=== PATIENT | female | born 1975 | race African-American/Black ===

== ENCOUNTER 2016-11-25 14:27 | Emergency (ER) | payer OTHER ==
[~2016-11-25] VITALS: Ht 160 cm; Wt 103.5 kg
[~2016-11-25 14:27] MED LIST: GAS-80CH CHEW; HYDR25TA5 PO; NAPR220T95 PO; TRIA1SPR6 EACH NARE
[2016-11-25 14:29] VITALS: BP 132/78; PULSE 96; RESP 12; TEMP 98.6; O2SAT 98
[2016-11-25 16:00] VITALS: BP 192/86; PULSE 62; RESP 16; O2SAT 99
[2016-11-25 17:00] VITALS: BP 173/78; PULSE 16; PULSE 62; RESP 16; O2SAT 96
--- NOTE | 2016-11-25 17:28 | RADRPT ---
EXAM DATE/TIME: 11/25/2016 17:05 [facility] COMPARISON: CHEST PA & LAT, October 06, 2016, 16:58. INDICATIONS : Cough MEDICAL HISTORY : None. SURGICAL HISTORY : None. ENCOUNTER: Initial ACUITY: 2 days PAIN SCORE: 0/10 LOCATION: Bilateral chest FINDINGS: Opacity overlying the medial right lung base may be a skin fold. The lungs appear otherwise clear. No evidence of effusion. Heart size and pulmonary vascularity appear normal. CONCLUSION: Probably no acute disease Fredy Cordero MD on November 25, 2016 at 17:25 Board Certified Radiologist. This report was verified electronically.
[2016-11-25 18:00] VITALS: BP 150/70; PULSE 62; RESP 18; O2SAT 97
--- NOTE | 2016-11-25 18:51 | RADRPT ---
EXAM DATE/TIME: 11/25/2016 18:09 [facility] COMPARISON: CHEST PA & LAT, October 06, 2016, 16:58. INDICATIONS : Cough for the past 3 days. MEDICAL HISTORY : Hypertension. Gastroesophageal reflux disease SURGICAL HISTORY : None. ENCOUNTER: Initial ACUITY: 3 days PAIN SCORE: 0/10 LOCATION: Bilateral chest FINDINGS: PA and lateral views of the chest demonstrate the lungs to be symmetrically aerated without evidence of mass, infiltrate or effusion. The cardiomediastinal contours are unremarkable. Osseous structure s are intact. CONCLUSION: No acute disease. There is no evidence of pneumonia. Jaswant Houston MD on November 25, 2016 at 18:48 Board Certified Radiologist. This report was verified electronically.
[2016-11-25] MEDS ORDERED: IPRA0.06 EACH NARE (18:58)
[2016-11-25] MEDS ORDERED: AZIT250T3 PO (18:58)
[2016-11-25] MEDS ORDERED: GUAI100S5 PO (18:59)
--- NOTE | 2016-11-25 18:59 | PD ---
HPI Chief Complaint: Cold / Flu Symptoms Time Seen by Provider: 17:00 Travel History International Travel<30 days: No Contact w/Intl Traveler<30days: No Traveled to known affect area: No History of Present Illness HPI Patient is a 41 -year-old female who presented to the emergency for evaluation of coughing, nasal congestion, throat irritation. Patient states that her symptoms have been ongoing for 3 days. She reports vomiting however it was associated with a coughing spell. She denies any abdominal pain, nausea, fevers , chills, headaches, shortness of breath. PFSH Past Medical History Hx Anticoagulant Therapy: Yes Heart Rhythm Problems: No Cardiac Catheterization: No High Cholesterol: Yes Chemotherapy: No Chest Pain: Yes Congestive Heart Failure: No Cerebrovascular Accident: No Diabetes: No Diminished Hearing: No GERD: Yes Headaches: Yes Hypertension: Yes Respiratory: No Immunizations Current: Yes Migraines: Yes Myocardial Infarction: No Ulcer: Yes ?: Not LMP: 10/25/2016 : 1 Para: 1 Miscarriage: 0 : 0 Past Surgical History Abdominal Surgery: Yes Section: Yes (1992) Coronary Artery Bypass Graft: No Gynecologic Surgery: Yes (C SECTION) Oral Surgery: Yes (WISDOM TEETH) Social History Alcohol Use: No Tobacco Use: No Substance Use: No Allergies-Medications (Allergen,Severity, Reaction): Coded Allergies: Peanut Allergy (Verified Allergy, Severe, 11/25/16) Potassium Chloride (Verified Allergy, Severe, 11/25/16) Tetanus Toxoid (Verified Allergy, Severe, RASH AT SITE, 11/25/16) Reported Meds & Prescriptions Reported Meds & Active Scripts Active Guaifenesin-Codeine Liq 100-10 Mg/5 Ml Soln 10 Ml PO Q6H PRN Ipratropium Nasal 0.06% [place] 1 [place] EACH NARE QID Azithromycin 250 Mg Tab 250 Mg PO DIRECTED Take 2 tabs (500 mg) on day 1 then 1 tab daily x 4 days. Reported Aleve (Naproxen Sodium) 220 Mg Tab 440 Mg PO BID PRN Nasacort Allergy 24Hr Nasal (Triamcinolone Nasal) 55 Mcg/Act Spr 2 [place] EACH NARE DAILY Gas-X (Simethicone) 80 Mg Chew 80 Mg CHEW QID PRN Hydrochlorothiazide 25 Mg Tab 25 Mg PO DAILY Review of Systems Except as stated in HPI: all other systems reviewed are Neg General / Constitutional: No: Fever, Chills HENT: No: Headaches Cardiovascular: No: Chest Pain or Discomfort Respiratory: Positive: Cough, Pleuritic Pain Gastrointestinal: No: Nausea, Vomiting Genitourinary: No: Dysuria Musculoskeletal: No: Myalgias Neurologic: No: Dizziness Physical Exam Narrative GENERAL: Obese, well-developed, alert female. Resting comfortably in no acute distress. SKIN: Warm and dry. HEAD: Atraumatic. Normocephalic. EYES: Pupils equal and round. No scleral icterus. No injection or drainage. ENT: No nasal bleeding or discharge. Mucous membranes pink and moist. Posterior pharynx with cobblestoning appearance. NECK: Trachea midline. No JVD. CARDIOVASCULAR: Regular rate and rhythm. No murmur appreciated. RESPIRATORY: No accessory muscle use. Clear to auscultation. Breath sounds equal bilaterally. GASTROINTESTINAL: Abdomen soft, non-tender, nondistended. Hepatic and splenic margins not palpable. MUSCULOSKELETAL: No obvious deformities. No clubbing. No cyanosis. No edema. NEUROLOGICAL: Awake and alert. No obvious cranial nerve deficits. Motor grossly within normal limits. Normal speech. PSYCHIATRIC: Appropriate mood and affect; insight and judgment normal. Data Data Last Documented VS Vital Signs Date Time Temp Pulse Resp B/P Pulse Ox O2 Delivery O2 Flow Rate FiO2 11/25/16 18:00 62 18 150/70 97 Room Air 11/25/16 14:29 98.6 Orders Chest, Single Ap (11/25/16 ) Influenzae A/B Antigen (11/25/16 17:07) Chest, Pa & Lat (11/25/16 ) MDM Medical Decision Making Medical Screen Exam Complete: Yes Emergency Medical Condition: Yes Interpretation(s) Vital Signs Date Time Temp Pulse Resp B/P Pulse Ox O2 Delivery O2 Flow Rate FiO2 11/25/16 18:00 62 18 150/70 97 Room Air 11/25/16 17:00 62 16 173/78 96 Room Air 11/25/16 16:00 62 16 192/86 99 Room Air 11/25/16 15:57 96 14 98 11/25/16 14:29 98.6 96 12 132/78 98 Room Air Differential Diagnosis Viral URI versus bronchitis versus pneumonia versus other Narrative Course Patient is a 41-year-old female who presents emergency reevaluation of 4 days of cough and cold symptoms. Patient reported to triage that she had vomited 4 times today however she had coughing spells which caused her to gag. Patient's physical examination appears most consistent with a viral syndrome, upper respiratory infection. A PA and lateral chest x-ray was performed which was negative, this was read by my attending physician. Influenza was negative. Patient's vital signs are stable, she is afebrile. She will be given cough medicine as well as a backup antibiotic however she was encouraged to continue with symptomatic management as her symptoms are likely viral in nature. He shouldn't is Norberto follow-up with her primary care provider return to emergency department for any new or worsening symptoms. Patient verbalized understanding of these instructions. Patient is stable for discharge. Diagnosis Primary Impression: Viral upper respiratory tract infection with cough Referrals: Primary Care Physician 2 days Patient Instructions: General Instructions, Upper Respiratory Infection (ED), Viral Syndrome (ED) Departure Forms: Tests/Procedures, Work Release Enter return to work date: Nov 28, 2016 Additional Instructions: Follow-up with her primary doctor Continue with symptomatic management Take medications as directed Return to emergency department for any new or worsening symptoms Med/Other Pt SpecificInfo: Prescription(s) given Scripts Guaifenesin-Codeine Liq 100-10 Mg/5 Ml Soln10 Ml PO Q6H PRN (COUGH) #120 BOTTLE Ref 0 Prov:Socrates Milligan MD 11/25/16 Ipratropium Nasal 0.06% Spray1 [place] EACH NARE QID #1 BOTTLE Ref 0 Prov:Krystle Fernandes 11/25/16 Azithromycin 250 Mg Udt057 Mg PO DIRECTED #6 TAB Ref 0 Take 2 tabs (500 mg) on day 1 then 1 tab daily x 4 days. Prov:Krystle Fernandes 11/25/16 Disposition: 01 DISCHARGE HOME Condition: Stable Krystle Fernandes Nov 25, 2016 18:59
[2016-11-25 19:39] VITALS: BP 145/78
[2016-12-17] MEDS ORDERED: HYDR25TA5 PO (16:01)
[2017-05-13] MEDS ORDERED: HYDR25TA5 PO (14:57)
== END 2016-11-25 19:44 | disposition home or self-care (01) ==
LOC: NEPE 14:27
DX: J06.9 Acute upper respiratory infection, unspecified (principal); E78.00 Pure hypercholesterolemia, unspecified; K21.9 Gastro-esophageal reflux disease without esophagitis; I10 Essential (primary) hypertension; Z79.01 Long term (current) use of anticoagulants
CPT/HCPCS: 71010; 71020; 87804; 99283

== ENCOUNTER 2016-12-05 00:25 | Emergency (ER) | payer OTHER ==
[~2016-12-05] VITALS: Ht 160 cm; Wt 103.0 kg
[~2016-12-05 00:25] MED LIST changes: +AZIT250T3 PO; +GUAI100S5 PO; +IPRA0.06 EACH NARE
[2016-12-05 00:28] VITALS: BP 145/86; PULSE 84; RESP 16; TEMP 98.3; O2SAT 97
[2016-12-05] MEDS ORDERED: CEPH-460 PO (02:20)
[2016-12-05] MEDS ORDERED: BACT800T5 PO (02:20)
--- NOTE | 2016-12-05 02:24 | PD ---
HPI Chief Complaint: Skin Problem Time Seen by Provider: 02:12 Travel History International Travel<30 days: Yes Contact w/Intl Traveler<30days: Yes Name of Country Traveled to: [facility] Traveled to known affect area: No History of Present Illness HPI 41-year-old female presents for evaluation of 2 areas of skin redness, tenderness. She reports that yesterday she felt itchy on both of her legs through her pants. Later on in the day she noticed an area of redness on the medial aspect of the right lower thigh, lateral aspect of the left lower thigh. She's had a little bit of oozing from a central pustular lesion on the left side. Symptoms are mild, aggravated by palpation. No fevers, chills. No other complaints. PFSH Past Medical History Hx Anticoagulant Therapy: Yes Heart Rhythm Problems: No Cardiac Catheterization: No Cardiovascular Problems: Yes (HTN) High Cholesterol: Yes Chemotherapy: No Chest Pain: Yes Congestive Heart Failure: No Cerebrovascular Accident: No Diabetes: No Diminished Hearing: No GERD: Yes Headaches: Yes Hypertension: Yes Respiratory: No Immunizations Current: Yes Migraines: Yes Myocardial Infarction: No Ulcer: Yes ?: Not LMP: 2 DAYS AGO : 1 Para: 1 Miscarriage: 0 : 0 Past Surgical History Abdominal Surgery: Yes Section: Yes (1992) Coronary Artery Bypass Graft: No Gynecologic Surgery: Yes (C SECTION) Oral Surgery: Yes (WISDOM TEETH) Social History Alcohol Use: No Tobacco Use: No Substance Use: No Allergies-Medications (Allergen,Severity, Reaction): Coded Allergies: Peanut Allergy (Verified Allergy, Severe, 11/25/16) Potassium Chloride (Verified Allergy, Severe, 11/25/16) Tetanus Toxoid (Verified Allergy, Severe, RASH AT SITE, 11/25/16) Reported Meds & Prescriptions Reported Meds & Active Scripts Active Keflex (Cephalexin) 500 Mg Cap 500 Mg PO Q6H 7 Days Bactrim DS (Sulfamethoxazole-Trimethoprim) 800-160 Mg Tab 1 Tab PO BID Guaifenesin-Codeine Liq 100-10 Mg/5 Ml Soln 10 Ml PO Q6H PRN Ipratropium Nasal 0.06% [place] 1 [place] EACH NARE QID Azithromycin 250 Mg Tab 250 Mg PO DIRECTED Take 2 tabs (500 mg) on day 1 then 1 tab daily x 4 days. Reported Aleve (Naproxen Sodium) 220 Mg Tab 440 Mg PO BID PRN Nasacort Allergy 24Hr Nasal (Triamcinolone Nasal) 55 Mcg/Act Spr 2 [place] EACH NARE DAILY Gas-X (Simethicone) 80 Mg Chew 80 Mg CHEW QID PRN Hydrochlorothiazide 25 Mg Tab 25 Mg PO DAILY Review of Systems Except as stated in HPI: all other systems reviewed are Neg Physical Exam Narrative GENERAL: Well-developed well-nourished female in no acute distress SKIN: Warm and dry. 3 cm area of mild erythema on the medial right lower thigh. 2-3 cm area of mild erythema on the lateral left lower thigh with central pustular oozing. There is no fluctuance or induration of the skin. CARDIOVASCULAR: Regular rate and rhythm. No murmur appreciated. RESPIRATORY: No accessory muscle use. Clear to auscultation. Breath sounds equal bilaterally. Data Data Last Documented VS Vital Signs Date Time Temp Pulse Resp B/P Pulse Ox O2 Delivery O2 Flow Rate FiO2 12/05/16 00:28 98.3 84 16 145/86 97 Room Air Orders Wound Culture And Gram Stain (12/05/16 02:19) Sulfamet-Trimeth Ds 800-160 Mg (Bactrim (12/05/16 02:30) Cephalexin (Keflex) (12/05/16 02:30) MDM Medical Decision Making Medical Screen Exam Complete: Yes Emergency Medical Condition: Yes Medical Record Reviewed: Yes Differential Diagnosis Cellulitis, erysipelas, necrotizing fasciitis, localized allergic reaction to bug bite, contact dermatitis, pustule, abscess Narrative Course 41-year-old female presents with an area of skin redness on the medial right lower thigh and lateral left lower thigh after retching at her skin yesterday. Examination reveals mild cellulitic changes, some bruising from central pustule lesion on the left side. Wound culture is been obtained. The patient is being discharged with Bactrim and Keflex. Diagnosis Primary Impression: Cellulitis Qualified Code: L03.116 - Cellulitis of left lower extremity Additional Impression: Cellulitis of right lower extremity Additional Instructions: Medication as prescribed. Warm compresses several times a day 10 minutes at a time. Follow-up with primary care physician as needed. Return for new or worsening symptoms. Med/Other Pt SpecificInfo: Prescription(s) given Scripts Cephalexin (Keflex)500 Mg [id number] Mg PO Q6H 7 Days Ref 0 Prov:Hector Arias MD 12/05/16 Sulfamethoxazole-Trimethoprim (Bactrim DS)800-160 Mg Tab1 Tab PO BID #14 TAB Ref 0 Prov:Hector Arias MD 12/05/16 Disposition: 01 DISCHARGE HOME Condition: Stable Jorge Clements Dec 05, 2016 02:24
[2016-12-05] MEDS ORDERED: SULFAMETHOXAZOLE-TRIMETHOPRIM DS 800-160 MG TAB PO ONE (02:30)
[2016-12-05] MEDS ORDERED: CEPHALEXIN MONOHYDRATE 500 MG CAP PO ONE (02:30)
[2016-12-17] MEDS ORDERED: HYDR25TA5 PO (16:01)
[2017-05-13] MEDS ORDERED: HYDR25TA5 PO (14:57)
== END 2016-12-05 02:49 | disposition home or self-care (01) ==
LOC: NEPB 00:25
DX: L03.116 Cellulitis of left lower limb (principal); L03.115 Cellulitis of right lower limb; B95.61 Methicillin susceptible Staphylococcus aureus infection as the cause of diseases classified elsewhere; I10 Essential (primary) hypertension; Z79.01 Long term (current) use of anticoagulants
CPT/HCPCS: 86403; 87070; 87186; 99283

== ENCOUNTER 2016-12-25 23:08 | Emergency (ER) | payer OTHER ==
[~2016-12-25] VITALS: Ht 160 cm; Wt 105.0 kg
[~2016-12-25 23:08] MED LIST changes: +CEPH-460 PO; -IPRA0.06 EACH NARE
[2016-12-25 23:10] VITALS: BP 139/83; PULSE 86; RESP 16; TEMP 98.5; O2SAT 97
[2017-05-13] MEDS ORDERED: HYDR25TA5 PO (14:57)
== END 2016-12-26 01:50 | disposition left against medical advice (07) ==
LOC: NED 23:08
DX: R68.89 Other general symptoms and signs (principal)
CPT/HCPCS: 99281

== ENCOUNTER 2017-01-13 09:28 | Emergency (ER) | payer OTHER ==
[~2017-01-13] VITALS: Ht 160 cm; Wt 104.0 kg
[2017-01-13 09:30] VITALS: BP 136/78; PULSE 80; RESP 14; TEMP 98.2; O2SAT 99
--- NOTE | 2017-01-13 09:42 | PD ---
HPI . weakness, epigastric pain x 2 days Chief Complaint: Headache Time Seen by Provider: 09:41 Travel History International Travel<30 days: No Contact w/Intl Traveler<30days: No Traveled to known affect area: No History of Present Illness HPI 42-year-old female [facility] with past medical history of hypertension and chronic recurrent ear infections here with complaints of weakness and epigastric pain for 2 days. She also reports having a headache that has not responded to tylenol. Patient tells me that she has not been able to eat or drink much for the past 2 days. She tells me she has some epigastric pain that is rated 6/10 without any radiation. When asked about the headache she says, "It ain't that bad right now." I offered toradol and she declined. She denies any nausea, vomiting, diarrhea or constipation. Her most recent bowel movement was this morning. She is urinating as usual. She does admit to having lots of sick contacts at work. She denies any chest pain, or diaphoresis. PFSH Past Medical History Hx Anticoagulant Therapy: Yes Heart Rhythm Problems: No Cardiac Catheterization: No Cardiovascular Problems: Yes High Cholesterol: Yes Chemotherapy: No Chest Pain: Yes Congestive Heart Failure: No Cerebrovascular Accident: No Diabetes: No Diminished Hearing: No GERD: Yes Headaches: Yes Hypertension: Yes Respiratory: No Immunizations Current: Yes Migraines: Yes Myocardial Infarction: No Ulcer: Yes ?: Not : 1 Para: 1 Miscarriage: 0 : 0 Past Surgical History Abdominal Surgery: Yes Section: Yes (X1) Coronary Artery Bypass Graft: No Gynecologic Surgery: Yes (C SECTION) Oral Surgery: Yes (WISDOM TEETH) Social History Alcohol Use: No Tobacco Use: No Substance Use: No Allergies-Medications (Allergen,Severity, Reaction): Coded Allergies: Peanut Allergy (Verified Allergy, Severe, 12/25/16) Potassium Chloride (Verified Allergy, Severe, 12/25/16) Tetanus Toxoid (Verified Allergy, Severe, RASH AT SITE, 12/25/16) Reported Meds & Prescriptions Reported Meds & Active Scripts Active Bactrim DS (Sulfamethoxazole-Trimethoprim) 800-160 Mg Tab 1 Tab PO BID Hydrochlorothiazide 25 Mg Tab 25 Mg PO DAILY Keflex (Cephalexin) 500 Mg Cap 500 Mg PO Q6H 7 Days Guaifenesin-Codeine Liq 100-10 Mg/5 Ml Soln 10 Ml PO Q6H PRN Azithromycin 250 Mg Tab 250 Mg PO DIRECTED Take 2 tabs (500 mg) on day 1 then 1 tab daily x 4 days. Reported Aleve (Naproxen Sodium) 220 Mg Tab 440 Mg PO BID PRN Nasacort Allergy 24Hr Nasal (Triamcinolone Nasal) 55 Mcg/Act Spr 2 [place] EACH NARE DAILY Gas-X (Simethicone) 80 Mg Chew 80 Mg CHEW QID PRN Review of Systems General / Constitutional: No: Fever Eyes: No: Visual changes HENT: Positive: Headaches Cardiovascular: No: Chest Pain or Discomfort Respiratory: No: Shortness of Breath Gastrointestinal: Positive: Abdominal Pain Genitourinary: No: Dysuria Musculoskeletal: No: Pain Skin: No Rash Neurologic: Positive: Weakness Psychiatric: No: Depression Endocrine: No: Polydipsia Hematologic/Lymphatic: No: Easy Bruising Physical Exam Narrative GENERAL: AAO x 3, no acute distress, Well-nourished, well-developed patient. Tearful, but in no distress. SKIN: Warm and dry. No visible rashes or bruising. HEAD: Normocephalic and atraumatic. EYES: No scleral icterus. No injection or drainage. EOM intact, PERRLA ENT: No nasal drainage noted. Mucous membranes pink. Airway patent. No maxillary or frontal sinus tenderness. NECK: Supple, trachea midline. No JVD. CARDIOVASCULAR: Regular rate and rhythm without murmurs, gallops, or rubs. RESPIRATORY: Breath sounds equal bilaterally. No accessory muscle use. No rhonchi or rales. GASTROINTESTINAL: Abdomen soft, non-tender, nondistended. Benign exam. EXTREMITIES: No cyanosis or edema. NEURO: no focal deficits, CN 2-12 intact BACK: Nontender without obvious deformity. No CVA tenderness. PSYCH: AAO x 3, normal affect. Data Data Last Documented VS Vital Signs Date Time Temp Pulse Resp B/P Pulse Ox O2 Delivery O2 Flow Rate FiO2 01/13/17 09:40 Room Air 01/13/17 09:30 98.2 80 14 136/78 99 Orders Complete Blood Count With Diff (01/13/17 09:50) Comprehensive Metabolic Panel (01/13/17 09:50) Urinalysis - C+S If Indicated (01/13/17 09:50) Influenzae A/B Antigen (01/13/17 09:50) Urine Culture (01/13/17 11:00) Labs Laboratory Tests Test 01/13/17 01/13/17 09:50 11:00 White Blood Count 6.1 TH/MM3 Red Blood Count 4.53 MIL/MM3 Hemoglobin 12.0 GM/DL Hematocrit 37.2 % Mean Corpuscular Volume 82.0 FL Mean Corpuscular Hemoglobin 26.4 PG Mean Corpuscular Hemoglobin 32.2 % Concent Red Cell Distribution Width 14.2 % Platelet Count 385 TH/MM3 Mean Platelet Volume 8.4 FL Neutrophils (%) (Auto) 56.2 % Lymphocytes (%) (Auto) 33.9 % Monocytes (%) (Auto) 5.0 % Eosinophils (%) (Auto) 4.2 % Basophils (%) (Auto) 0.7 % Neutrophils # (Auto) 3.4 TH/MM3 Lymphocytes # (Auto) 2.1 TH/MM3 Monocytes # (Auto) 0.3 TH/MM3 Eosinophils # (Auto) 0.3 TH/MM3 Basophils # (Auto) 0.0 TH/MM3 CBC Comment DIFF FINAL Differential Comment Sodium Level 136 MEQ/L Potassium Level 3.6 MEQ/L Chloride Level 101 MEQ/L Carbon Dioxide Level 26.6 MEQ/L Anion Gap 8 MEQ/L Blood Urea Nitrogen 11 MG/DL Creatinine 0.93 MG/DL Estimat Glomerular Filtration 80 ML/MIN Rate Random Glucose 151 MG/DL Calcium Level 8.7 MG/DL Total Bilirubin 0.2 MG/DL Aspartate Amino Transf 13 U/L (AST/SGOT) Alanine Aminotransferase 19 U/L (ALT/SGPT) Alkaline Phosphatase 77 U/L Total Protein 7.7 GM/DL Albumin 3.5 GM/DL Urine Color YELLOW Urine Turbidity HAZY Urine pH 5.0 Urine Specific [place] 1.026 Urine Protein TRACE mg/dL Urine Glucose (UA) NEG mg/dL Urine Ketones NEG mg/dL Urine Occult Blood NEG Urine Nitrite NEG Urine Bilirubin NEG Urine Urobilinogen LESS THAN 2.0 MG/DL Urine Leukocyte Esterase NEG Urine RBC 1 /hpf Urine WBC 7 /hpf Urine Squamous Epithelial 1 /hpf Cells Urine Bacteria MANY /hpf Urine Mucus FEW /lpf Microscopic Urinalysis Comment CULTURE INDICATED MDM Medical Decision Making Medical Screen Exam Complete: Yes Emergency Medical Condition: Yes Medical Record Reviewed: Yes Differential Diagnosis influenza, UTI, sinus headache Narrative Course 42-year-old female [facility] with past medical history of hypertension and chronic recurrent ear infections here with complaints of weakness and epigastric pain for 2 days. She also reports having a headache that has not responded to tylenol. Patient tells me that she has not been able to eat or drink much for the past 2 days. She tells me she has some epigastric pain that is rated 6/10 without any radiation. When asked about the headache she says, "It ain't that bad right now." I offered toradol and she declined. She denies any nausea, vomiting, diarrhea or constipation. Her most recent bowel movement was this morning. She is urinating as usual. She does admit to having lots of sick contacts at work. She denies any chest pain, or diaphoresis. Patient seen and examined. Labs, UA and influenza ordered. CBC is fairly unremarkable. BMP unremarkable except for mild hyperglycemia. Negative influenza. UA is pending. Culture recommended. Will treat with antibiotics as she could possibly have sinusitis with head pressure. Discuss that she will need to get her sugars followed up with Dr. Alfonso. Advise follow-up with community [facility]. Diagnosis Primary Impression: Viral syndrome Additional Impression: UTI (urinary tract infection) Qualified Code: N39.0 - Urinary tract infection without hematuria, site unspecified Patient Instructions: General Instructions Additional Instructions: Please return to emergency department if your symptoms return or worsen. Follow up with your primary care provider in the community clinic. Take medications as prescribed. Med/Other Pt SpecificInfo: Prescription(s) given Scripts Sulfamethoxazole-Trimethoprim (Bactrim DS)800-160 Mg Tab1 Tab PO BID #20 TAB Prov:Genesis Mark 01/13/17 Disposition: DISCHARGE HOME Condition: Stable Genesis Mark Jan 13, 2017 09:42
[2017-01-13 10:26] LABS: AUTOMATED NEUTROPHIL # 3.4 TH/MM3 (1.8-7.7); BASOPHIL % 0.7 % (0.0-2.0); EOSINOPHIL # 0.3 TH/MM3 (0-0.4); EOSINOPHIL % 4.2 % (0.0-4.0); HEMATOCRIT 37.2 % (35.0-46.0); HEMO FLAGS DIFF FINAL; LYMPH % 33.9 % (9.0-44.0); LYMPHOCYTE # 2.1 TH/MM3 (1.0-4.8); MEAN CORPUSCULAR HEMOGLOBIN 26.4 PG (27.0-34.0); MEAN CORPUSCULAR HGB CONC 32.2 % (32.0-36.0); NEUT % 56.2 % (16.0-70.0); PLATELET COUNT 385 TH/MM3 (150-450); RED BLOOD COUNT 4.53 MIL/MM3 (4.00-5.30); RED CELL DISTRIBUTION WIDTH 14.2 % (11.6-17.2); WHITE BLOOD COUNT 6.1 TH/MM3 (4.0-11.0)
[2017-01-13 10:44] LABS: ANION GAP 8 MEQ/L (5-15); AST (GOT) 13 U/L (15-37); BICARBONATE 26.6 MEQ/L (21.0-32.0); BLOOD UREA NITROGEN 11 MG/DL (7-18); CHLORIDE 101 MEQ/L (98-107); GLOMERULAR FILTRATION RATE 80 ML/MIN (>89); POTASSIUM 3.6 MEQ/L (3.5-5.1); SODIUM (NA) 136 MEQ/L (136-145)
[2017-01-13 10:48] LABS: ALKALINE PHOSPHATASE 77 U/L (45-117); ALT (GPT) 19 U/L (10-53); TOTAL BILIRUBIN ADULT 0.2 MG/DL (0.2-1.0)
[2017-01-13 11:39] LABS: BACTERIA, URINE MANY /hpf; BLOOD, URINE NEG (NEG); COMMENT (UR) CULTURE INDICATED; CULTURE IF INDICATED CULTURE INDICATED; GLUCOSE,URINE NEG (NEG); KETONE, URINE NEG (NEG); MUCUS URINE FEW /lpf (OCC); NITRITE,URINE NEG (NEG); SQUAMOUS EPITHELIAL CELL URINE 1 /hpf (0-5); URINE COLOR YELLOW (YELLW/STRAW)
[2017-01-13] MEDS ORDERED: BACT800T5 PO (12:12)
[2017-05-13] MEDS ORDERED: HYDR25TA5 PO (14:57)
== END 2017-01-13 12:36 | disposition home or self-care (01) ==
LOC: NEPC 09:28
DX: B34.9 Viral infection, unspecified (principal); N39.0 Urinary tract infection, site not specified; B96.89 Other specified bacterial agents as the cause of diseases classified elsewhere; I10 Essential (primary) hypertension
CPT/HCPCS: 80053; 81001; 85025; 87086; 87804; 99284

== ENCOUNTER 2017-02-12 10:54 | Emergency (ER) | payer OTHER ==
[~2017-02-12] VITALS: Ht 160 cm; Wt 105.0 kg
[~2017-02-12 10:54] MED LIST changes: -AZIT250T3 PO; +BACT800T5 PO; -CEPH-460 PO; -GUAI100S5 PO; -NAPR220T95 PO
[2017-02-12 10:55] VITALS: BP 131/74; PULSE 74; RESP 16; TEMP 98.1; O2SAT 98
[2017-02-12 11:06] VITALS: BP 122/61; PULSE 69; RESP 16; TEMP 98.7
[2017-02-12 11:07] VITALS: O2SAT 99
[2017-02-12] MEDS ORDERED: SODIUM CHLORIDE 0.9% FLUSH 10 ML FLUSH IVF PRN (11:15)
[2017-02-12] MEDS ORDERED: ASPIRIN 81 MG CHEW TAB PO ONE (11:15)
--- NOTE | 2017-02-12 11:21 | PD ---
HPI . Dizziness and palpitations Chief Complaint: Cardiac Complaint Time Seen by Provider: 11:07 Travel History International Travel<30 days: No Contact w/Intl Traveler<30days: No Traveled to known affect area: No History of Present Illness HPI Patient presents with a 4 day history of dizziness and a one day history of palpitations. She states that her heart has skipped a beat twice today. She also complains with mild shortness of breath. She denies nausea or vomiting. Patient does not really describe vertigo. She denies headache. She denies any exacerbating or relieving factors. She does state that she has had similar symptoms in the past. [id number]: Head QUALITY: Dizzy SEVERITY: Severe DURATION: 4 days TIMING: Comes and goes MODIFYING FACTORS: No noted exacerbating or relieving factors ASSOCIATED SYMPTOMS: Her heart has skipped a beat twice this morning PFSH Past Medical History Hx Anticoagulant Therapy: Yes Heart Rhythm Problems: No Cardiac Catheterization: No Cardiovascular Problems: Yes High Cholesterol: Yes Chemotherapy: No Chest Pain: Yes Congestive Heart Failure: No Cerebrovascular Accident: No Diabetes: No Diminished Hearing: No GERD: Yes Headaches: Yes Heparin Induced Thrombocytopen: No Hypertension: Yes Respiratory: No Immunizations Current: Yes Migraines: Yes Myocardial Infarction: No Ulcer: Yes Tetanus Vaccination: Unknown Influenza Vaccination: No ?: Not LMP: 01/24/17 : 1 Para: 1 Miscarriage: 0 : 0 Past Surgical History Abdominal Surgery: Yes Section: Yes (X1) Coronary Artery Bypass Graft: No Gynecologic Surgery: Yes (C SECTION) Oral Surgery: Yes (WISDOM TEETH) Social History Alcohol Use: No Tobacco Use: No Substance Use: No Allergies-Medications (Allergen,Severity, Reaction): Coded Allergies: Peanut Allergy (Verified Allergy, Severe, 02/12/17) Potassium Chloride (Verified Allergy, Severe, 02/12/17) Tetanus Toxoid (Verified Allergy, Severe, RASH AT SITE, 02/12/17) Reported Meds & Prescriptions Reported Meds & Active Scripts Active Hydrochlorothiazide 25 Mg Tab 25 Mg PO DAILY Reported Nasacort Allergy 24Hr Nasal (Triamcinolone Nasal) 55 Mcg/Act Spr 2 [place] EACH NARE DAILY Gas-X (Simethicone) 80 Mg Chew 80 Mg CHEW QID PRN Review of Systems Except as stated in HPI: all other systems reviewed are Neg General / Constitutional: No: Fever, Chills Eyes: No: Blurred Vision HENT: No: Headaches, Congestion Cardiovascular: Positive: Palpitations, No: Chest Pain or Discomfort Respiratory: Positive: Shortness of Breath Gastrointestinal: No: Nausea, Vomiting, Diarrhea Neurologic: Positive: Dizziness, No: Syncope, Focal Abnormalities, Ataxia, Headache, Change in Mentation, Slurred Speech, Incontinence, Sensory Disturbance Physical Exam Narrative GENERAL: The patient is initially lying on the stretcher looking to the right with her eyes closed. She did open her eyes and turn her head without any apparent distress. SKIN: Warm and dry. HEAD: Atraumatic. Normocephalic. EYES: Pupils equal and round. Extraocular movements are intact. ENT: No nasal bleeding or discharge. Mucous membranes pink and moist. NECK: Trachea midline. Neck is supple. CARDIOVASCULAR: Regular rate and rhythm. Heart sounds are normal. RESPIRATORY: No accessory muscle use. Lungs are clear with full air movement throughout. GASTROINTESTINAL: Abdomen soft, non-tender, nondistended. MUSCULOSKELETAL: No obvious deformities. No edema. NEUROLOGICAL: Awake and alert. No obvious cranial nerve deficits. Motor grossly within normal limits. Normal speech. Normal [id number] exam. PSYCHIATRIC: Appropriate mood and affect; insight and judgment normal. Data Data Last Documented VS Vital Signs Date Time Temp Pulse Resp B/P Pulse Ox O2 Delivery O2 Flow Rate FiO2 02/12/17 11:12 70 Room Air 02/12/17 11:06 98.7 16 122/61 02/12/17 10:55 98 Orders Basic Metabolic Panel (Bmp) (02/12/17 11:09) Ckmb (Isoenzyme) Profile (02/12/17 11:09) Complete Blood Count With Diff (02/12/17 11:09) Magnesium (Mg) (02/12/17 11:09) Troponin I (02/12/17 11:09) Chest, Single Ap (02/12/17 11:09) Ecg Monitoring (02/12/17 11:09) Iv Access Insert/Monitor (02/12/17 11:09) Oximetry (02/12/17 11:09) Aspirin Chew (Aspirin Chew) (02/12/17 11:15) Sodium Chloride 0.9% Flush (Ns Flush) (02/12/17 11:15) Prochlorperazine Inj (Compazine Inj) (02/12/17 11:30) Diphenhydramine Inj (Benadryl Inj) (02/12/17 11:30) CKMB (02/12/17 11:15) CKMB% (02/12/17 11:15) Labs Laboratory Tests Test 02/12/17 11:15 White Blood Count 5.9 TH/MM3 Red Blood Count 4.34 MIL/MM3 Hemoglobin 11.7 GM/DL Hematocrit 35.7 % Mean Corpuscular Volume 82.4 FL Mean Corpuscular Hemoglobin 26.9 PG Mean Corpuscular Hemoglobin 32.6 % Concent Red Cell Distribution Width 14.4 % Platelet Count 347 TH/MM3 Mean Platelet Volume 8.5 FL Neutrophils (%) (Auto) 56.6 % Lymphocytes (%) (Auto) 32.9 % Monocytes (%) (Auto) 6.1 % Eosinophils (%) (Auto) 3.8 % Basophils (%) (Auto) 0.6 % Neutrophils # (Auto) 3.3 TH/MM3 Lymphocytes # (Auto) 1.9 TH/MM3 Monocytes # (Auto) 0.4 TH/MM3 Eosinophils # (Auto) 0.2 TH/MM3 Basophils # (Auto) 0.0 TH/MM3 CBC Comment DIFF FINAL Differential Comment Sodium Level 137 MEQ/L Potassium Level 4.5 MEQ/L Chloride Level 106 MEQ/L Carbon Dioxide Level 26.5 MEQ/L Anion Gap 5 MEQ/L Blood Urea Nitrogen 11 MG/DL Creatinine 0.69 MG/DL Estimat Glomerular Filtration 112 ML/MIN Rate Random Glucose 98 MG/DL Calcium Level 8.9 MG/DL Magnesium Level 2.1 MG/DL Total Creatine Kinase 226 U/L Creatine Kinase MB 1.3 NG/ML Creatine Kinase MB % 0.6 % Troponin I LESS THAN 0.02 NG/ML MDM Medical Decision Making Medical Screen Exam Complete: Yes Emergency Medical Condition: Yes Medical Record Reviewed: Yes (medical records reviewed. She has a history of hypertension, hyperlipidemia and headaches.) Interpretation(s) EKG shows a sinus rhythm with no ST segment elevation or depression. Her EKG is unchanged from previous. Differential Diagnosis Differential diagnosis of dizziness includes but is not limited to vertigo, dehydration, acute blood loss, sepsis, ACS Narrative Course Patient presents complaining with 4 days of dizziness and palpitations today. She has a benign exam. CBC & BMP Diagram 02/12/17 11:15 Her cardiac enzymes are negative. Chest x-ray to my interpretation is negative. No acute etiology for her symptoms has been found. Diagnosis Primary Impression: Dizziness Disposition: 01 DISCHARGE HOME Condition: Stable Laura Jennings MD Feb 12, 2017 11:21
[2017-02-12] MEDS ORDERED: PROCHLORPERAZINE INJ 10 MG/2 ML VIAL IV PUSH ONE (11:30)
[2017-02-12] MEDS: diphenhydrAMINE HCL 50 MG/ML VIAL IV PUSH ONE ×2 (11:30→11:59)
[2017-02-12 11:43] LABS: AUTOMATED NEUTROPHIL # 3.3 TH/MM3 (1.8-7.7); BASOPHIL % 0.6 % (0.0-2.0); EOSINOPHIL # 0.2 TH/MM3 (0-0.4); EOSINOPHIL % 3.8 % (0.0-4.0); HEMATOCRIT 35.7 % (35.0-46.0); HEMO FLAGS DIFF FINAL; LYMPH % 32.9 % (9.0-44.0); LYMPHOCYTE # 1.9 TH/MM3 (1.0-4.8); MEAN CELL VOLUME 82.4 FL (80.0-100.0); MEAN CORPUSCULAR HEMOGLOBIN 26.9 PG (27.0-34.0); MEAN CORPUSCULAR HGB CONC 32.6 % (32.0-36.0); MONO % 6.1 % (0.0-8.0); NEUT % 56.6 % (16.0-70.0); PLATELET COUNT 347 TH/MM3 (150-450); RED BLOOD COUNT 4.34 MIL/MM3 (4.00-5.30); RED CELL DISTRIBUTION WIDTH 14.4 % (11.6-17.2); WHITE BLOOD COUNT 5.9 TH/MM3 (4.0-11.0)
[2017-02-12 12:03] LABS: ANION GAP 5 MEQ/L (5-15); BICARBONATE 26.5 MEQ/L (21.0-32.0); BLOOD UREA NITROGEN 11 MG/DL (7-18); CHLORIDE 106 MEQ/L (98-107); GLOMERULAR FILTRATION RATE 112 ML/MIN (>89); MAGNESIUM 2.1 MG/DL (1.5-2.5); SODIUM (NA) 137 MEQ/L (136-145)
[2017-02-12 12:04] LABS: CREATINE KINASE 226 U/L (26-192); POTASSIUM 4.5 MEQ/L (3.5-5.1)
[2017-02-12 12:17] LABS: CKMB 1.3 NG/ML (0.5-3.6)
--- NOTE | 2017-02-12 13:36 | RADRPT ---
EXAM DATE/TIME: 02/12/2017 11:20 [facility] COMPARISON: CHEST SINGLE AP, November 25, 2016, 17:05. INDICATIONS : Chest pain. MEDICAL HISTORY : Hypertension. Gastroesophageal reflux disease. SURGICAL HISTORY : None. ENCOUNTER: Initial ACUITY: 3 days PAIN SCORE: 2/10 LOCATION: Bilateral chest FINDINGS: A single view of the chest demonstrates the lungs to be symmetrically aerated without evidence of mas s, infiltrate or effusion. The cardiomediastinal contours are unremarkable. Osseous structures are intact. CONCLUSION: 1. No acute cardiopulmonary disease. Stoney Soriano MD on February 12, 2017 at 13:34 Board Certified Radiologist. This report was verified electronically.
--- NOTE | 2017-02-13 13:40 | EKG ---
Date Performed: 02/12/2017 Time Performed: 11:08:03 PTAGE: 42 years EKG: Sinus rhythm NORMAL ECG PREVIOUS TRACING : 11/05/2016 09.41 Compared to prior tracing no significant change DOCTOR: Stoney Tirado Interpretating Date/Time 02/13/2017 13:36:49
[2017-05-13] MEDS ORDERED: HYDR25TA5 PO (14:57)
== END 2017-02-12 13:15 | disposition home or self-care (01) ==
LOC: NEPA 10:54
DX: R42 Dizziness and giddiness (principal); R00.2 Palpitations; R06.02 Shortness of breath; I10 Essential (primary) hypertension; Z79.01 Long term (current) use of anticoagulants
CPT/HCPCS: 71010; 80048; 82550; 82552; 83735; 84484; 85025; 93005; 96374; 99284; J0780; J1200

== ENCOUNTER → 2017-04-09 | Outpatient (CLI) | payer OTHER ==
[~2017-04-09] MED LIST changes: -BACT800T5 PO; -GAS-80CH CHEW
[2017-04-09 09:27] LABS: AUTOMATED NEUTROPHIL # 3.1 TH/MM3 (1.8-7.7); BASOPHIL % 0.9 % (0.0-2.0); EOSINOPHIL # 0.2 TH/MM3 (0-0.4); EOSINOPHIL % 4.3 % (0.0-4.0); HEMATOCRIT 34.2 % (35.0-46.0); HEMO FLAGS DIFF FINAL; LYMPH % 31.9 % (9.0-44.0); LYMPHOCYTE # 1.7 TH/MM3 (1.0-4.8); MEAN CELL VOLUME 80.2 FL (80.0-100.0); MEAN CORPUSCULAR HEMOGLOBIN 27.2 PG (27.0-34.0); MEAN CORPUSCULAR HGB CONC 33.9 % (32.0-36.0); MONO % 4.6 % (0.0-8.0); NEUT % 58.3 % (16.0-70.0); PLATELET COUNT 308 TH/MM3 (150-450); RED BLOOD COUNT 4.27 MIL/MM3 (4.00-5.30); RED CELL DISTRIBUTION WIDTH 14.2 % (11.6-17.2); WHITE BLOOD COUNT 5.3 TH/MM3 (4.0-11.0)
[2017-04-09 11:02] LABS: ALT (GPT) 19 U/L (10-53); ANION GAP 8 MEQ/L (5-15); AST (GOT) 13 U/L (15-37); BICARBONATE 26.5 MEQ/L (21.0-32.0); BLOOD UREA NITROGEN 9 MG/DL (7-18); CHLORIDE 106 MEQ/L (98-107); GLOMERULAR FILTRATION RATE 96 ML/MIN (>89); GLUCOSE,FASTING 116 MG/DL (74-99); POTASSIUM 3.5 MEQ/L (3.5-5.1); SODIUM (NA) 140 MEQ/L (136-145)
[2017-04-09 11:14] LABS: ALKALINE PHOSPHATASE 75 U/L (45-117); HDL CHOLESTEROL 36.5 MG/DL (40.0-60.0); LDL CHOLESTEROL 142 MG/DL (0-99); TOTAL BILIRUBIN ADULT 0.2 MG/DL (0.2-1.0)
== END ==
LOC: CLAB 08:48
PROVIDERS: ATTEND Family Medicine
DX: H61.20 Impacted cerumen, unspecified ear (principal); E78.5 Hyperlipidemia, unspecified; E66.9 Obesity, unspecified; I10 Essential (primary) hypertension; Z91.19 Patient's noncompliance with other medical treatment and regimen
CPT/HCPCS: 36415; 80053; 80061; 84443; 85025

== ENCOUNTER → 2017-04-28 | Outpatient (CLI) | payer OTHER ==
[~2017-04-28] MED LIST changes: +BAYE325T PO
[2017-04-28 10:38] LABS: BICARBONATE 25.8 MEQ/L (21.0-32.0); POTASSIUM 3.5 MEQ/L (3.5-5.1)
== END ==
LOC: CLAB 09:41
PROVIDERS: ATTEND Family Medicine
DX: N83.9 Noninflammatory disorder of ovary, fallopian tube and broad ligament, unspecified (principal)
CPT/HCPCS: 36415; 80048

== ENCOUNTER → 2017-04-29 | Outpatient (CLI) | payer OTHER ==
[~2017-04-29] MED LIST changes: +GADODIAMIDE PF 287 MG/ML 20 ML VIAL (for RAD MRI) IV ONE
--- NOTE | 2017-04-29 10:00 | RADRPT ---
EXAM DATE/TIME: 04/29/2017 08:13 [facility] COMPARISON: CT ABDOMEN & PELVIS W/O CONTRAST, July 18, 2015, 4:23. MRI PELVIS W & W/O CONTRAST, May 16 15, 17:18. INDICATIONS : Mass. Following size and any changes to mass in comparison to prior MRI in 2014. CONTRAST: 20 cc Omniscan (gadodiamide) IV MEDICAL HISTORY : Hypertension. SURGICAL HISTORY : section. ENCOUNTER: Sequela ACUITY: > 1 year PAIN SCORE: 3/10 LOCATION: Lower abdomen. TECHNIQUE: Multiplanar, multisequence magnetic resonance imaging of the pelvis was performed. FINDINGS: Again, there is a fat-containing mass within the right hemipelvis/adnexa which measures 7.1 x 6.4 x 7 .7 cm. This also contains calcification and fluid. This likely represents dermoid/teratoma. The ut erus is stable in appearance compared to the previous examination. No pelvis lymphadenopathy is note d. The urinary bladder is unremarkable. No pelvic ascites is noted. The bowel loops within the pel vis are unremarkable. CONCLUSION: 1. Stable complex right adnexal mass measuring 7.1 x 6.4 x 7.7 cm consistent with dermoid/teratoma. 2. No new findings identified within the pelvis. Carlos Singh MD on April 29, 2017 at 9:23 Board Certified Radiologist. This report was verified electronically.
== END ==
LOC: HRAD 07:19
PROVIDERS: ATTEND Family Medicine
DX: R19.09 Other intra-abdominal and pelvic swelling, mass and lump (principal)
CPT/HCPCS: 72197; A9579

== ENCOUNTER 2017-05-16 00:22 | Emergency (ER) | payer OTHER ==
[~2017-05-16] VITALS: Ht 160 cm; Wt 105.0 kg
[~2017-05-16 00:22] MED LIST changes: -BAYE325T PO; -GADODIAMIDE PF 287 MG/ML 20 ML VIAL (for RAD MRI) IV ONE
[2017-05-16 00:25] VITALS: BP 165/76; PULSE 73; RESP 20; TEMP 97.8; O2SAT 100
[2017-05-16] MEDS ORDERED: SODIUM CHLORIDE 0.9% FLUSH 10 ML FLUSH IVF PRN (01:00)
[2017-05-16 01:10] LABS: AUTOMATED NEUTROPHIL # 4.3 TH/MM3 (1.8-7.7); BASOPHIL % 0.5 % (0.0-2.0); EOSINOPHIL # 0.3 TH/MM3 (0-0.4); EOSINOPHIL % 3.6 % (0.0-4.0); HEMATOCRIT 35.4 % (35.0-46.0); HEMO FLAGS DIFF FINAL; LYMPH % 37.6 % (9.0-44.0); MEAN CELL VOLUME 80.6 FL (80.0-100.0); MEAN CORPUSCULAR HEMOGLOBIN 26.4 PG (27.0-34.0); MEAN CORPUSCULAR HGB CONC 32.7 % (32.0-36.0); MONO % 4.9 % (0.0-8.0); NEUT % 53.4 % (16.0-70.0); PLATELET COUNT 347 TH/MM3 (150-450); RED BLOOD COUNT 4.39 MIL/MM3 (4.00-5.30); RED CELL DISTRIBUTION WIDTH 13.8 % (11.6-17.2); WHITE BLOOD COUNT 8.1 TH/MM3 (4.0-11.0)
[2017-05-16 01:46] LABS: BICARBONATE 27.2 MEQ/L (21.0-32.0); POTASSIUM 3.7 MEQ/L (3.5-5.1)
--- NOTE | 2017-05-16 02:45 | RADRPT ---
EXAM DATE/TIME: 05/16/2017 02:10 [facility] COMPARISON: CHEST SINGLE AP, February 12, 2017, 11:20. INDICATIONS : Shortness of breath for a few hours, and feet swelling. MEDICAL HISTORY : Hypertension. Gastroesophageal reflux disease. SURGICAL HISTORY : None. ENCOUNTER: Initial ACUITY: 1 day PAIN SCORE: 0/10 LOCATION: Bilateral chest FINDINGS: The lungs are clear without infiltrate, nodule, or mass. There is no appreciable pleural effusion fo r technique. Heart and mediastinum are unremarkable. CONCLUSION: No acute cardiopulmonary disease. Stacy Ramirez MD on May 16, 2017 at 2:44 Board Certified Radiologist. This report was verified electronically.
[2017-05-16 03:30] VITALS: BP 154/86; PULSE 72; RESP 14; O2SAT 100
--- NOTE | 2017-05-16 03:36 | PD ---
HPI Chief Complaint: Edema Time Seen by Provider: 00:44 Travel History International Travel<30 days: No Contact w/Intl Traveler<30days: No Traveled to known affect area: No History of Present Illness HPI Patient is a 42 year old female who presents to ER with c/o of SOB and leg swelling. Reports that she ran out of her hctz and has not taken it for past few days, she did get refill today but did not take it today because it makes her go to the bathroom too much. Patient is here for evaluation and wants to make sure she is okay. Patient with no cp. no f/v. no other c/o. PFSH Past Medical History Hx Anticoagulant Therapy: Yes Heart Rhythm Problems: No Cardiac Catheterization: No Cardiovascular Problems: Yes High Cholesterol: Yes Chemotherapy: No Chest Pain: Yes Congestive Heart Failure: No Cerebrovascular Accident: No Diabetes: No Diminished Hearing: No GERD: Yes Headaches: Yes Heparin Induced Thrombocytopen: No Hypertension: Yes Respiratory: No Immunizations Current: Yes Migraines: Yes Myocardial Infarction: No Ulcer: Yes ?: Not LMP: 04/15/17 : 1 Para: 1 Miscarriage: 0 : 0 Past Surgical History Abdominal Surgery: Yes Section: Yes (X1) Coronary Artery Bypass Graft: No Gynecologic Surgery: Yes (C SECTION) Oral Surgery: Yes (WISDOM TEETH) Social History Alcohol Use: Yes (rare) Tobacco Use: No Substance Use: No Allergies-Medications (Allergen,Severity, Reaction): Coded Allergies: Peanut Allergy (Verified Allergy, Severe, 05/16/17) Potassium Chloride (Verified Allergy, Severe, 05/16/17) Tetanus Toxoid (Verified Allergy, Severe, RASH AT SITE, 05/16/17) Reported Meds & Prescriptions Reported Meds & Active Scripts Active Hydrochlorothiazide 25 Mg Tab 25 Mg PO DAILY Reported Nasacort Allergy 24Hr Nasal (Triamcinolone Nasal) 55 Mcg/Act Spr 2 [place] EACH NARE DAILY Review of Systems General / Constitutional: No: Fever Eyes: No: Visual changes HENT: No: Headaches Cardiovascular: No: Chest Pain or Discomfort, Palpitations, Irregular Rhythm, Tachycardia, Diaphoresis Respiratory: Positive: Shortness of Breath Gastrointestinal: No: Nausea, Vomiting, Abdominal Pain Genitourinary: No: Dysuria Musculoskeletal: Positive: Edema (swelling to LE's b/l ), No: Pain Skin: No Rash Neurologic: No: Weakness Psychiatric: No: Depression Endocrine: No: Polydipsia Hematologic/Lymphatic: No: Easy Bruising Physical Exam Narrative GENERAL: NAD, Nontoxic SKIN: Focused skin assessment warm/dry. HEAD: Atraumatic. Normocephalic. EYES: Pupils equal and round. No scleral icterus. No injection or drainage. ENT: No nasal bleeding or discharge. Mucous membranes pink and moist. NECK: Trachea midline. No JVD. CARDIOVASCULAR: Regular rate and rhythm. No murmur appreciated. RESPIRATORY: No accessory muscle use. Clear to auscultation. Breath sounds equal bilaterally. GASTROINTESTINAL: Abdomen soft, non-tender, nondistended. Hepatic and splenic margins not palpable. MUSCULOSKELETAL: No obvious deformities. No clubbing. No cyanosis. Mild edema to LE's b/l. NEUROLOGICAL: Awake and alert. No obvious cranial nerve deficits. Motor grossly within normal limits. Normal speech. PSYCHIATRIC: Appropriate mood and affect; insight and judgment normal. Data Data Last Documented VS Vital Signs Date Time Temp Pulse Resp B/P Pulse Ox O2 Delivery O2 Flow Rate FiO2 05/16/17 00:37 Room Air 05/16/17 00:25 97.8 73 20 165/76 100 Orders Complete Blood Count With Diff (05/16/17 00:55) Basic Metabolic Panel (Bmp) (05/16/17 00:55) B-Type Natriuretic Peptide (05/16/17 00:55) Urinalysis - C+S If Indicated (05/16/17 00:55) Iv Access Insert/Monitor (05/16/17 00:55) Electrocardiogram (05/16/17 00:55) Ecg Monitoring (05/16/17 00:55) Oximetry (05/16/17 00:55) Sodium Chloride 0.9% Flush (Ns Flush) (05/16/17 01:00) Us Leg Venous Doppler Bilat (05/16/17 ) Chest, Single Ap (05/16/17 01:47) Labs Laboratory Tests Test 05/16/17 01:03 White Blood Count 8.1 TH/MM3 Red Blood Count 4.39 MIL/MM3 Hemoglobin 11.6 GM/DL Hematocrit 35.4 % Mean Corpuscular Volume 80.6 FL Mean Corpuscular Hemoglobin 26.4 PG Mean Corpuscular Hemoglobin 32.7 % Concent Red Cell Distribution Width 13.8 % Platelet Count 347 TH/MM3 Mean Platelet Volume 8.6 FL Neutrophils (%) (Auto) 53.4 % Lymphocytes (%) (Auto) 37.6 % Monocytes (%) (Auto) 4.9 % Eosinophils (%) (Auto) 3.6 % Basophils (%) (Auto) 0.5 % Neutrophils # (Auto) 4.3 TH/MM3 Lymphocytes # (Auto) 3.0 TH/MM3 Monocytes # (Auto) 0.4 TH/MM3 Eosinophils # (Auto) 0.3 TH/MM3 Basophils # (Auto) 0.0 TH/MM3 CBC Comment DIFF FINAL Differential Comment Sodium Level 141 MEQ/L Potassium Level 3.7 MEQ/L Chloride Level 107 MEQ/L Carbon Dioxide Level 27.2 MEQ/L Anion Gap 7 MEQ/L Blood Urea Nitrogen 10 MG/DL Creatinine 0.73 MG/DL Estimat Glomerular Filtration 105 ML/MIN Rate Random Glucose 98 MG/DL Calcium Level 8.8 MG/DL B-Type Natriuretic Peptide 47 PG/ML MDM Medical Decision Making Medical Screen Exam Complete: Yes Emergency Medical Condition: Yes Interpretation(s) Vital Signs Date Time Temp Pulse Resp B/P Pulse Ox O2 Delivery O2 Flow Rate FiO2 05/16/17 00:37 Room Air 05/16/17 00:25 97.8 73 20 165/76 100 Laboratory Tests Test 05/16/17 01:03 White Blood Count 8.1 TH/MM3 (4.0-11.0) Red Blood Count 4.39 MIL/MM3 (4.00-5.30) Hemoglobin 11.6 GM/DL (11.6-15.3) Hematocrit 35.4 % (35.0-46.0) Mean Corpuscular Volume 80.6 FL (80.0-100.0) Mean Corpuscular Hemoglobin 26.4 PG (27.0-34.0) Mean Corpuscular Hemoglobin 32.7 % Concent (32.0-36.0) Red Cell Distribution Width 13.8 % (11.6-17.2) Platelet Count 347 TH/MM3 (150-450) Mean Platelet Volume 8.6 FL (7.0-11.0) Neutrophils (%) (Auto) 53.4 % (16.0-70.0) Lymphocytes (%) (Auto) 37.6 % (9.0-44.0) Monocytes (%) (Auto) 4.9 % (0.0-8.0) Eosinophils (%) (Auto) 3.6 % (0.0-4.0) Basophils (%) (Auto) 0.5 % (0.0-2.0) Neutrophils # (Auto) 4.3 TH/MM3 (1.8-7.7) Lymphocytes # (Auto) 3.0 TH/MM3 (1.0-4.8) Monocytes # (Auto) 0.4 TH/MM3 (0-0.9) Eosinophils # (Auto) 0.3 TH/MM3 (0-0.4) Basophils # (Auto) 0.0 TH/MM3 (0-0.2) CBC Comment DIFF FINAL Differential Comment Sodium Level 141 MEQ/L (136-145) Potassium Level 3.7 MEQ/L (3.5-5.1) Chloride Level 107 MEQ/L (98-107) Carbon Dioxide Level 27.2 MEQ/L (21.0-32.0) Anion Gap 7 MEQ/L (5-15) Blood Urea Nitrogen 10 MG/DL (7-18) Creatinine 0.73 MG/DL (0.50-1.00) Estimat Glomerular Filtration 105 ML/MIN Rate (>89) Random Glucose 98 MG/DL (74-106) Calcium Level 8.8 MG/DL (8.5-10.1) B-Type Natriuretic Peptide 47 PG/ML (0-100) Differential Diagnosis dvt, pe, pneumothorax, CHF Narrative Course 42-year-old female who presents to emergency room complaints of shortness of breath as well as bilateral leg swelling. Lab work including ultrasound of legs and x-ray chest ordered. Laboratory Tests Test 05/16/17 01:03 White Blood Count 8.1 TH/MM3 (4.0-11.0) Red Blood Count 4.39 MIL/MM3 (4.00-5.30) Hemoglobin 11.6 GM/DL (11.6-15.3) Hematocrit 35.4 % (35.0-46.0) Mean Corpuscular Volume 80.6 FL (80.0-100.0) Mean Corpuscular Hemoglobin 26.4 PG (27.0-34.0) Mean Corpuscular Hemoglobin 32.7 % Concent (32.0-36.0) Red Cell Distribution Width 13.8 % (11.6-17.2) Platelet Count 347 TH/MM3 (150-450) Mean Platelet Volume 8.6 FL (7.0-11.0) Neutrophils (%) (Auto) 53.4 % (16.0-70.0) Lymphocytes (%) (Auto) 37.6 % (9.0-44.0) Monocytes (%) (Auto) 4.9 % (0.0-8.0) Eosinophils (%) (Auto) 3.6 % (0.0-4.0) Basophils (%) (Auto) 0.5 % (0.0-2.0) Neutrophils # (Auto) 4.3 TH/MM3 (1.8-7.7) Lymphocytes # (Auto) 3.0 TH/MM3 (1.0-4.8) Monocytes # (Auto) 0.4 TH/MM3 (0-0.9) Eosinophils # (Auto) 0.3 TH/MM3 (0-0.4) Basophils # (Auto) 0.0 TH/MM3 (0-0.2) CBC Comment DIFF FINAL Differential Comment Sodium Level 141 MEQ/L (136-145) Potassium Level 3.7 MEQ/L (3.5-5.1) Chloride Level 107 MEQ/L (98-107) Carbon Dioxide Level 27.2 MEQ/L (21.0-32.0) Anion Gap 7 MEQ/L (5-15) Blood Urea Nitrogen 10 MG/DL (7-18) Creatinine 0.73 MG/DL (0.50-1.00) Estimat Glomerular Filtration 105 ML/MIN Rate (>89) Random Glucose 98 MG/DL (74-106) Calcium Level 8.8 MG/DL (8.5-10.1) B-Type Natriuretic Peptide 47 PG/ML (0-100) CBC: Within normal limits BMP: Within normal limits BNP: 47 chest xray: no acute cardiopulmonary disease venous doppler LE: No DVT All labs and studies reviewed with patient in detail. Patient will follow up with her pcp and will return to ER as needed. Patient reports that she is feeling much better at this time Diagnosis Primary Impression: Localized swelling of both lower legs Additional Impression: SOB (shortness of breath) Patient Instructions: General Instructions Additional Instructions: Please follow up with your primary care doctor Take all medications as prescribed Return to ER as needed Have you ultrasound repeated in 1 week if swelling persist Disposition: 01 DISCHARGE HOME Condition: Stable Stacey Dougherty DO May 16, 2017 03:36
[2017-05-16 04:30] VITALS: BP 144/78; PULSE 68; RESP 14; O2SAT 100
[2017-05-16 05:21] VITALS: BP 148/80; PULSE 70; RESP 14; O2SAT 100
--- NOTE | 2017-05-16 11:06 | RADRPT ---
EXAM DATE/TIME: 05/16/2017 01:25 [facility] COMPARISON: No previous studies available for comparison. INDICATIONS : Bilateral leg swelling. MEDICAL HISTORY : Gastroesophageal reflux disease. Hypertension. Hypercholesterolemia. Migraine. Chest pain. Ulcer. SURGICAL HISTORY : section. Abdominal surgery, unspecified. ENCOUNTER: Initial ACUITY: 1 week PAIN SCORE: 5/10 LOCATION: Bilateral legs. TECHNIQUE: Venous ultrasound of the left and right leg was performed from the inguinal ligament to the proximal calf. Real-time, color Doppler and spectral tracing, compression and augmentation techniques were us ed. FINDINGS: RIGHT LEG: There is normal compressibility of the deep venous system from the inguinal region to the proximal ca lf. No echogenic clot is seen in the lumen of the common femoral, femoral, popliteal, and posterior tibial veins. There is a normal response of the venous system to proximal and distal augmentation an d respiration. LEFT LEG: There is normal compressibility of the deep venous system from the inguinal region to the proximal ca lf. No echogenic clot is seen in the lumen of the common femoral, femoral, popliteal, and posterior tibial veins. There is a normal response of the venous system to proximal and distal augmentation an d respiration. CONCLUSION: No DVT. Stacy Ramirez MD on May 16, 2017 at 2:43 Board Certified Radiologist. This report was verified electronically.
[2017-05-22] MEDS ORDERED: BAYE325T PO (08:58)
== END 2017-05-16 05:49 | disposition home or self-care (01) ==
LOC: NEPE 00:22
DX: M79.89 Other specified soft tissue disorders (principal); R06.02 Shortness of breath; E78.00 Pure hypercholesterolemia, unspecified; K21.9 Gastro-esophageal reflux disease without esophagitis; I10 Essential (primary) hypertension; Z79.899 Other long term (current) drug therapy
CPT/HCPCS: 71010; 80048; 83880; 85025; 93970

== ENCOUNTER → 2017-05-22 | Outpatient (CLI) | payer OTHER ==
[~2017-05-22] MED LIST changes: +BAYE325T PO
[2017-05-22 10:33] LABS: ANION GAP 6 MEQ/L (5-15); BICARBONATE 28.4 MEQ/L (21.0-32.0); BLOOD UREA NITROGEN 11 MG/DL (7-18); CHLORIDE 103 MEQ/L (98-107); GLOMERULAR FILTRATION RATE 101 ML/MIN (>89); POTASSIUM 3.7 MEQ/L (3.5-5.1); SODIUM (NA) 137 MEQ/L (136-145)
[2017-05-22 11:13] LABS: HEMOGLOBIN A1a 1.2 %; HEMOGLOBIN Ao 83.8 %; HEMOGLOBIN F 1.6 %; HEMOGLOBIN LA1C 2.1 %; HEMOGLOBIN P3 3.7 %
== END ==
LOC: CLAB 09:40
PROVIDERS: ATTEND Family Medicine
DX: R73.02 Impaired glucose tolerance (oral) (principal); N83.9 Noninflammatory disorder of ovary, fallopian tube and broad ligament, unspecified
CPT/HCPCS: 36415; 80048; 83036

== ENCOUNTER 2017-05-30 14:40 | Emergency (ER) | payer OTHER ==
[~2017-05-30] VITALS: Ht 160 cm; Wt 105.9 kg
[2017-05-30 14:42] VITALS: BP 139/59; PULSE 91; RESP 17; TEMP 97.8; O2SAT 96
[2017-05-30] MEDS ORDERED: SODIUM CHLORIDE 0.9% FLUSH 10 ML FLUSH IVF PRN (16:30)
[2017-05-30] MEDS ORDERED: ASPIRIN 325 MG TAB PO ONE (16:30)
--- NOTE | 2017-05-30 16:58 | PD ---
HPI Chief Complaint: Chest Pain Time Seen by Provider: 16:55 Travel History International Travel<30 days: No Contact w/Intl Traveler<30days: No Traveled to known affect area: No History of Present Illness HPI 42-year-old female that presents to the ED for evaluation of left-sided chest pain. Per patient she had this for about an hour before coming to the ED. Per patient is not constant but comes and goes. Per patient she is pain-free at this time. She does have a history of lower leg edema and used to take hydrochlorothiazide for it. Unclear she's taken it. She does have a history of hypertension and states that she is borderline diabetic. Denies any history of heart disease on herself. Allergies to peanuts, potassium chloride and tetanus. States that the pain was sharp 5 out of 10. Nothing made it better or worse. She has no shortness of breath. No nausea or vomiting. No cough or runny nose. No injuries reported. No recent travel. PFSH Past Medical History Hx Anticoagulant Therapy: Yes Heart Rhythm Problems: No Cardiac Catheterization: No Cardiovascular Problems: Yes High Cholesterol: Yes Chemotherapy: No Chest Pain: Yes Congestive Heart Failure: No Cerebrovascular Accident: No Diabetes: Yes (PRE-DIABETIC) Patient Takes Glucophage: No Diminished Hearing: No GERD: Yes Headaches: Yes Heparin Induced Thrombocytopen: No Hypertension: Yes Respiratory: No Immunizations Current: Yes Migraines: Yes Myocardial Infarction: No Ulcer: Yes ?: Not LMP: 05/30/17 : 1 Para: 1 Miscarriage: 0 : 0 Past Surgical History Abdominal Surgery: Yes Section: Yes (X1) Coronary Artery Bypass Graft: No Gynecologic Surgery: Yes (C SECTION) Oral Surgery: Yes (WISDOM TEETH) Social History Alcohol Use: Yes (rare) Tobacco Use: No Substance Use: No Allergies-Medications (Allergen,Severity, Reaction): Coded Allergies: Peanut Allergy (Verified Allergy, Severe, 05/30/17) Potassium Chloride (Verified Allergy, Severe, 05/30/17) Tetanus Toxoid (Verified Allergy, Severe, RASH AT SITE, 05/30/17) Reported Meds & Prescriptions Reported Meds & Active Scripts Active Hydrochlorothiazide 25 Mg Tab 25 Mg PO DAILY Reported Raghu Aspirin (Aspirin) 325 Mg Tab 325 Mg PO DAILY PRN Nasacort Allergy 24Hr Nasal (Triamcinolone Nasal) 55 Mcg/Act Spr 2 [place] EACH NARE DAILY Review of Systems Except as stated in HPI: all other systems reviewed are Neg Physical Exam Narrative GENERAL: SKIN: Warm and dry. HEAD: Atraumatic. Normocephalic. EYES: Pupils equal and round. No scleral icterus. No injection or drainage. ENT: No nasal bleeding or discharge. Mucous membranes pink and moist. Tongue is midline. No uvula deviation. NECK: Trachea midline. No JVD. CARDIOVASCULAR: Regular rate and rhythm. No murmurs, S3, S4. Chest pain is not reproducible with touch. RESPIRATORY: No accessory muscle use. Clear to auscultation. Breath sounds equal bilaterally. GASTROINTESTINAL: Abdomen soft, non-tender, nondistended. Hepatic and splenic margins not palpable. MUSCULOSKELETAL: Extremities without clubbing, cyanosis, or edema. No obvious deformities. Full range of motion of the upper and lower extremities bilaterally. 2+ pulses bilaterally. NEUROLOGICAL: Awake and alert. No obvious cranial nerve deficits. Motor grossly within normal limits. Five out of 5 muscle strength in the arms and legs. Normal speech. PSYCHIATRIC: Appropriate mood and affect; insight and judgment normal. Data Data Last Documented VS Vital Signs Date Time Temp Pulse Resp B/P Pulse Ox O2 Delivery O2 Flow Rate FiO2 05/30/17 16:24 85 18 99 Room Air 05/30/17 14:42 97.8 139/59 Orders Electrocardiogram (05/30/17 ) Electrocardiogram (05/30/17 16:18) Basic Metabolic Panel (Bmp) (05/30/17 16:18) Ckmb (Isoenzyme) Profile (05/30/17 16:18) Complete Blood Count With Diff (05/30/17 16:18) Magnesium (Mg) (05/30/17 16:18) Troponin I (05/30/17 16:18) Chest, Single Ap (05/30/17 16:18) Ecg Monitoring (05/30/17 16:18) Bilateral Bp Monitoring (05/30/17 16:18) Iv Access Insert/Monitor (05/30/17 16:18) Aspirin (Aspirin) (05/30/17 16:30) Sodium Chloride 0.9% Flush (Ns Flush) (05/30/17 16:30) CKMB (05/30/17 16:43) CKMB% (05/30/17 16:43) Troponin I (05/30/17 18:43) Labs Laboratory Tests Test 05/30/17 05/30/17 16:43 18:43 White Blood Count 6.3 TH/MM3 Red Blood Count 4.48 MIL/MM3 Hemoglobin 12.0 GM/DL Hematocrit 36.9 % Mean Corpuscular Volume 82.4 FL Mean Corpuscular Hemoglobin 26.8 PG Mean Corpuscular Hemoglobin 32.5 % Concent Red Cell Distribution Width 14.3 % Platelet Count 361 TH/MM3 Mean Platelet Volume 8.1 FL Neutrophils (%) (Auto) 58.0 % Lymphocytes (%) (Auto) 31.2 % Monocytes (%) (Auto) 6.0 % Eosinophils (%) (Auto) 4.3 % Basophils (%) (Auto) 0.5 % Neutrophils # (Auto) 3.7 TH/MM3 Lymphocytes # (Auto) 2.0 TH/MM3 Monocytes # (Auto) 0.4 TH/MM3 Eosinophils # (Auto) 0.3 TH/MM3 Basophils # (Auto) 0.0 TH/MM3 CBC Comment DIFF FINAL Differential Comment Sodium Level 141 MEQ/L Potassium Level 3.5 MEQ/L Chloride Level 105 MEQ/L Carbon Dioxide Level 28.0 MEQ/L Anion Gap 8 MEQ/L Blood Urea Nitrogen 13 MG/DL Creatinine 0.85 MG/DL Estimat Glomerular Filtration 88 ML/MIN Rate Random Glucose 103 MG/DL Calcium Level 9.2 MG/DL Magnesium Level 2.1 MG/DL Total Creatine Kinase 226 U/L Creatine Kinase MB 0.9 NG/ML Creatine Kinase MB % 0.4 % Troponin I LESS THAN 0.02 LESS THAN 0.02 NG/ML NG/ML MDM Medical Decision Making Medical Screen Exam Complete: Yes Emergency Medical Condition: Yes Medical Record Reviewed: Yes Interpretation(s) CBC & BMP Diagram 05/30/17 16:43 Last Impressions Chest X-Ray 05/30/17 1618 Signed Impressions: Service Date/Time: Tuesday, May 30, 2017 16:34 - CONCLUSION: No acute cardiopulmonary disease. Stacy Ramirez MD EKG shows sinus rhythm with no sign of acute ischemia or arrhythmia read by me and attending. Troponin and CK-MB negative. Differential Diagnosis Chest pain versus atypical chest pain versus normal exam versus costochondritis Narrative Course 42-year-old female that presents to the ED for evaluation of chest pain. Patient was properly examined and was found to have signs and symptoms of unclear etiology. Low suspicion for ACS but unfortunate patient does have risk factors including hypertension and what appears to be high cholesterol. Will do blood work and EKG as well as chest x-ray. Labs and imaging showed no sign of acute disease. Patient was offered admission and she does have risk factors the chest pain center for further evaluation. She declined at this time. Second troponin was ordered and was negative. Patient still declines admission for further workup. Patient was told to wear proper testing she could develop severe illness. Case was discussed in my attending Dr. Ayala who recommends AMA patient does not want to stay for further evaluation. AMA: The risks of leaving against medical advice without further evaluation treatment were discussed with the patient. These risks include cardiac dysfunction, cardiac dysrhythmia, possible heart attack, possible stroke or . The patient indicated understanding of these risks and appeared to have the capacity to make this decision. Diagnosis Primary Impression: Chest pain in adult Patient Instructions: General Instructions Additional Instructions: Follow up with your doctor this week. See ED if worst. Take aspirin PRN. Med/Other Pt SpecificInfo: No Change to Meds Disposition: 07 AGAINST MEDICAL ADVICE Condition: Stable Adalberto Grayson May 30, 2017 16:58
--- NOTE | 2017-05-30 16:59 | RADRPT ---
EXAM DATE/TIME: 05/30/2017 16:34 [facility] COMPARISON: No previous studies available for comparison. INDICATIONS : Left side chest pain. MEDICAL HISTORY : Gastroesophageal reflux disease. Hypertension. Hypercholesterolemia. Migraine.Chest pain. Ulcer. SURGICAL HISTORY : section. Abdominal surgery, unspecified. ENCOUNTER: Initial ACUITY: 1 day PAIN SCORE: 8/10 LOCATION: Bilateral chest FINDINGS: The lungs are clear without infiltrate, nodule, or mass. There is no appreciable pleural effusion fo r technique. Heart and mediastinum are unremarkable. CONCLUSION: No acute cardiopulmonary disease. Stacy Ramirez MD on May 30, 2017 at 16:57 Board Certified Radiologist. This report was verified electronically.
[2017-05-30 17:03] LABS: AUTOMATED NEUTROPHIL # 3.7 TH/MM3 (1.8-7.7); BASOPHIL % 0.5 % (0.0-2.0); EOSINOPHIL # 0.3 TH/MM3 (0-0.4); EOSINOPHIL % 4.3 % (0.0-4.0); HEMATOCRIT 36.9 % (35.0-46.0); HEMO FLAGS DIFF FINAL; LYMPH % 31.2 % (9.0-44.0); MEAN CELL VOLUME 82.4 FL (80.0-100.0); MEAN CORPUSCULAR HEMOGLOBIN 26.8 PG (27.0-34.0); MEAN CORPUSCULAR HGB CONC 32.5 % (32.0-36.0); PLATELET COUNT 361 TH/MM3 (150-450); RED BLOOD COUNT 4.48 MIL/MM3 (4.00-5.30); RED CELL DISTRIBUTION WIDTH 14.3 % (11.6-17.2); WHITE BLOOD COUNT 6.3 TH/MM3 (4.0-11.0)
[2017-05-30 17:40] LABS: ANION GAP 8 MEQ/L (5-15); BLOOD UREA NITROGEN 13 MG/DL (7-18); CHLORIDE 105 MEQ/L (98-107); CREATINE KINASE 226 U/L (26-192); GLOMERULAR FILTRATION RATE 88 ML/MIN (>89); MAGNESIUM 2.1 MG/DL (1.5-2.5); POTASSIUM 3.5 MEQ/L (3.5-5.1); SODIUM (NA) 141 MEQ/L (136-145)
[2017-05-30 17:52] LABS: CKMB 0.9 NG/ML (0.5-3.6)
[2017-05-30 20:19] VITALS: BP 119/68; PULSE 70; RESP 16; O2SAT 100
--- NOTE | 2017-05-31 12:40 | EKG ---
Date Performed: 05/30/2017 Time Performed: 14:55:36 PTAGE: 42 years EKG: Sinus rhythm NONSPECIFIC T-WAVE ABNORMALITY Compared to prior tracing no significant change ABNORMAL ECG PREVIOUS TRACING : 02/12/2017 11.08 DOCTOR: Jhonny Dominguez Interpretating Date/Time 05/31/2017 12:38:34
== END 2017-05-30 20:34 | disposition left against medical advice (07) ==
LOC: NEPC 14:40
DX: R07.9 Chest pain, unspecified (principal); R94.31 Abnormal electrocardiogram [ECG] [EKG]; I10 Essential (primary) hypertension
CPT/HCPCS: 71010; 80048; 82550; 82552; 83735; 84484; 85025; 93005; 99285

== ENCOUNTER 2017-06-10 03:48 | Observation (INO) | payer OTHER ==
[~2017-06-10] VITALS: Ht 160 cm; Wt 104.0 kg
[2017-06-10 03:49] VITALS: BP 170/101; PULSE 80; RESP 16; TEMP 98.4; O2SAT 99
--- NOTE | 2017-06-10 04:32 | PD ---
HPI Chief Complaint: Respiratory Symptoms Time Seen by Provider: 04:16 Travel History International Travel<30 days: No Contact w/Intl Traveler<30days: No Traveled to known affect area: No History of Present Illness HPI The patient is a 42 year old female who presents to the [facility] emergency department with a history of having episodes where she felt like she was stopping breathing prior to arrival. She reports that she had just woken up and she was lying in bed and felt like 5 time she briefly stopped breathing. She has difficulty describing exactly what that was like. She denies having any chest pain or chest pressure. She denies having any shortness of breath currently. She denies ever being diagnosed with sleep apnea. She reports that she does snore regularly. She denies ever having a sleep apnea evaluation. She does report having problems with chronic daily indigestion. She denies having any known reflux symptoms tonight. She reports that she stopped taking her acid slubber tender as it was not helping. The patient reports that she has had problems with intermittent lower extremity edema over the last month. She denies any prior history of myocardial infarction or congestive heart failure. She reports that she last had a stress test done approximately 2 years ago. On review of systems, the patient denies any recent fevers, cough, chest congestion , neck pain, abdominal pain, vomiting, diarrhea, urinary symptoms, or neurologic symptoms. The patient denies having any personal history of DVT or PE. The patient reports that she has had some recent head congestion. [facility] Past Medical History Narrative Medical The patient's past medical history is significant for being prediabetic, history of hyperlipidemia, history of hypertension, history of migraine headaches, history of acid reflux. Hx Anticoagulant Therapy: Yes Heart Rhythm Problems: No Cardiac Catheterization: No Cardiovascular Problems: Yes High Cholesterol: Yes Chemotherapy: No Chest Pain: Yes Congestive Heart Failure: No Cerebrovascular Accident: No Diabetes: Yes (PRE-DIABETIC) Patient Takes Glucophage: No Diminished Hearing: No GERD: Yes Headaches: Yes Heparin Induced Thrombocytopen: No Hypertension: Yes Respiratory: No Immunizations Current: Yes Migraines: Yes Myocardial Infarction: No Ulcer: Yes Tetanus Vaccination: > 5 Years Influenza Vaccination: No ?: Not LMP: LAST WEEK : 1 Para: 1 Miscarriage: 0 : 0 Past Surgical History Narrative Surgical The patient's past surgical history is significant for a 1, wisdom teeth extraction Abdominal Surgery: Yes Section: Yes (X1) Coronary Artery Bypass Graft: No Gynecologic Surgery: Yes (C SECTION) Oral Surgery: Yes (WISDOM TEETH) Social History Alcohol Use: Yes (rare) Tobacco Use: No Substance Use: No Allergies-Medications (Allergen,Severity, Reaction): Coded Allergies: Peanut Allergy (Verified Allergy, Severe, 06/10/17) Potassium Chloride (Verified Allergy, Severe, 06/10/17) Tetanus Toxoid (Verified Allergy, Severe, RASH AT SITE, 06/10/17) Reported Meds & Prescriptions Reported Meds & Active Scripts Active Reported Raghu Aspirin (Aspirin) 325 Mg Tab 325 Mg PO DAILY PRN Review of Systems Except as stated in HPI: all other systems reviewed are Neg General / Constitutional: No: Fever Eyes: No: Visual changes HENT: Positive: Congestion (in her head), No: Headaches Cardiovascular: No: Chest Pain or Discomfort, Dyspnea on exertion Respiratory: Positive: Shortness of Breath, No: Cough Gastrointestinal: Positive: Indigestion, No: Nausea, Vomiting, Diarrhea, Abdominal Pain, Changes in Bowel Habits, Loss of Appetite Genitourinary: No: Dysuria Musculoskeletal: No: Pain Skin: No Rash Neurologic: No: Weakness, Focal Abnormalities, Change in Mentation, Slurred Speech, Sensory Disturbance Psychiatric: No: Depression Endocrine: No: Polydipsia Hematologic/Lymphatic: No: Easy Bruising Physical Exam Narrative General: The patient is a well-developed well-nourished female in no acute distress. Head and Neck exam: Head is normocephalic atraumatic. Eyes: EOMI, pupils are equal round and reactive to light. Nose: Midline septum with pink mucous membranes Mouth: Dentition unremarkable. Moist mucus membranes. Posterior oropharynx is not erythematous. No tonsillar hypertrophy. Uvula midline. Airway patent. Neck: No palpable lymphadenopathy. No nuchal rigidity. No thyromegaly. Cardiovascular: Regular rate and rhythm without murmurs, gallops, or rubs. Lungs: Clear to auscultation bilaterally. No wheezes, rhonchi, or rales. Abdomen: Soft, without tenderness to palpation in all 4 quadrants of the abdomen. No guarding, rebound, or rigidity. Normal bowel sounds are audible. No tenderness on palpation of McBurney's point. Negative Hornsby sign. Extremities: No clubbing, cyanosis, or edema. 2+ pulses in all 4 extremities. No calf tenderness on palpation. Negative Homans sign. No palpable cords. Back: No costovertebral angle tenderness to palpation. Neurologic Exam: Grossly nonfocal. Skin Exam: No rash noted. Intact skin that is warm and dry. Data Data Last Documented VS Vital Signs Date Time Temp Pulse Resp B/P Pulse Ox O2 Delivery O2 Flow Rate FiO2 06/10/17 04:08 Room Air 06/10/17 03:49 98.4 80 16 170/101 99 Orders Electrocardiogram (06/10/17 04:27) Complete Blood Count With Diff (06/10/17 04:27) Comprehensive Metabolic Panel (06/10/17 04:27) Creatine Kinase (Cpk) (06/10/17 04:27) Ckmb (Isoenzyme) Profile (06/10/17 04:27) Troponin I (06/10/17 04:27) B-Type Natriuretic Peptide (06/10/17 04:27) Prothrombin Time / Inr (Pt) (06/10/17 04:27) Act Partial Throm Time (Ptt) (06/10/17 04:27) Lipase (06/10/17 04:27) Urinalysis - C+S If Indicated (06/10/17 04:27) D-Dimer (06/10/17 04:27) Thyroid Stimulating Hormone (06/10/17 04:27) Chest, Single Ap (06/10/17 04:27) Iv Access Insert/Monitor (06/10/17 04:27) Ecg Monitoring (06/10/17 04:27) Oximetry (06/10/17 04:27) Ed Urine Pregnancytest Poc (06/10/17 04:27) CKMB (06/10/17 05:05) CKMB% (06/10/17 05:05) Admit Order (Ed Use Only) (06/10/17 06:32) Labs Laboratory Tests Test 06/10/17 05:05 White Blood Count 5.8 TH/MM3 Red Blood Count 4.50 MIL/MM3 Hemoglobin 12.2 GM/DL Hematocrit 36.9 % Mean Corpuscular Volume 81.9 FL Mean Corpuscular Hemoglobin 27.2 PG Mean Corpuscular Hemoglobin 33.2 % Concent Red Cell Distribution Width 14.1 % Platelet Count 360 TH/MM3 Mean Platelet Volume 8.6 FL Neutrophils (%) (Auto) 50.1 % Lymphocytes (%) (Auto) 39.7 % Monocytes (%) (Auto) 5.1 % Eosinophils (%) (Auto) 4.3 % Basophils (%) (Auto) 0.8 % Neutrophils # (Auto) 2.9 TH/MM3 Lymphocytes # (Auto) 2.3 TH/MM3 Monocytes # (Auto) 0.3 TH/MM3 Eosinophils # (Auto) 0.2 TH/MM3 Basophils # (Auto) 0.0 TH/MM3 CBC Comment DIFF FINAL Differential Comment Prothrombin Time 10.5 SEC Prothromb Time International 1.0 RATIO Ratio Activated Partial 27.3 SEC Thromboplast Time D-Dimer Quantitative (PE/DVT) LESS THAN 0.19 MG/L FEU Sodium Level 139 MEQ/L Potassium Level 3.3 MEQ/L Chloride Level 105 MEQ/L Carbon Dioxide Level 27.0 MEQ/L Anion Gap 7 MEQ/L Blood Urea Nitrogen 13 MG/DL Creatinine 0.83 MG/DL Estimat Glomerular Filtration 91 ML/MIN Rate Random Glucose 139 MG/DL Calcium Level 9.0 MG/DL Total Bilirubin 0.2 MG/DL Aspartate Amino Transf 10 U/L (AST/SGOT) Alanine Aminotransferase 21 U/L (ALT/SGPT) Alkaline Phosphatase 79 U/L Total Creatine Kinase 126 U/L Creatine Kinase MB 0.7 NG/ML Troponin I LESS THAN 0.02 NG/ML B-Type Natriuretic Peptide 7 PG/ML Total Protein 7.4 GM/DL Albumin 3.4 GM/DL Lipase 135 U/L Thyroid Stimulating Hormone 1.530 uIU/ML [address] [place] [address] Medical Decision Making Medical Screen Exam Complete: Yes Emergency Medical Condition: Yes Medical Record Reviewed: Yes Interpretation(s) Last Impressions Chest X-Ray 06/10/17 0427 Signed Impressions: Service Date/Time: Saturday, June 10, 2017 04:30 - CONCLUSION: No acute cardiopulmonary abnormality is identified. Fredy Sierra MD Differential Diagnosis Obstructive sleep apnea, versus acid reflux, versus congestive heart failure, versus pulmonary embolism Narrative Course During the course of the patients emergency department visit, the patients history, examination, and differential diagnosis were reviewed with the patient. The patient had IV access obtained and blood work sent for analysis. The patient's was on a plywood scarfer tender with oximetry and blood pressure monitoring. The patient had an ECG done on arrival. The patient's ECG reveals a sinus rhythm with a heart rate of 64, nonspecific ST-T wave abnormalities. T waves are inverted in V1. QRS duration is 88 ms, QTC 434 ms The patient reports that she took a single adult aspirin prior to arrival. The patients laboratory studies were reviewed and remarkable for a CBC that shows a white count of 5.8, hemoglobin 12.2, platelets 360 with 4.3 eosinophil, PT 10.5, PTT 27.3, d-dimer is less than 0.19 decreasing the likelihood of pulmonary embolism in this patient with no other significant risk factors. A CMP that shows a potassium of 3.3, glucose 139, AST 10, CPK 126, troponin I less than 0.02, BNP 7, lipase 135, TSH 1.53. Radiology studies were reviewed and remarkable for a chest x-ray that shows no acute cardiopulmonary abnormality. Given the patient's recurrent chest pain with evaluation earlier this month in the emergency department, and now the patient's reported recurrent symptoms of shortness of breath, the patient will be admitted to the chest pain center for rule out serial cardiac enzyme protocol and consideration of stress testing to follow. The patients results were discussed with the patient, including the plan of care. I explained that further testing and/ or monitoring is indicated based on the patients history, examination, and/ or laboratory findings. Therefore, I recommended admission for additional evaluation. The patient expressed understanding and was agreeable with this plan. The patient was admitted to the hospital in stable condition and sent to a bed under the care of chest pain center. Diagnosis Primary Impression: Shortness of breath at rest Additional Impression: History of chest pain Admitting Information Admitting Physician Requests: Observation Valarie Diggs MD Jun 10, 2017 04:32
--- NOTE | 2017-06-10 04:59 | RADRPT ---
EXAM DATE/TIME: 06/10/2017 04:30 [facility] COMPARISON: CHEST SINGLE AP, May 30, 2017, 16:34. INDICATIONS : Short of breath. MEDICAL HISTORY : Hypertension. SURGICAL HISTORY : None. ENCOUNTER: Initial ACUITY: 1 day PAIN SCORE: 0/10 LOCATION: Bilateral chest FINDINGS: Portable AP view of the chest demonstrates a normal-sized cardiac silhouette. No effusion, consolidat ion, or pneumothorax is visualized. The bones and soft tissues demonstrate no acute abnormality. Lung s are underinflated. CONCLUSION: No acute cardiopulmonary abnormality is identified. Fredy Sierra MD on June 10, 2017 at 4:57 Board Certified Radiologist. This report was verified electronically.
[2017-06-10 05:21] LABS: AUTOMATED NEUTROPHIL # 2.9 TH/MM3 (1.8-7.7); BASOPHIL % 0.8 % (0.0-2.0); EOSINOPHIL # 0.2 TH/MM3 (0-0.4); EOSINOPHIL % 4.3 % (0.0-4.0); HEMATOCRIT 36.9 % (35.0-46.0); HEMO FLAGS DIFF FINAL; LYMPH % 39.7 % (9.0-44.0); LYMPHOCYTE # 2.3 TH/MM3 (1.0-4.8); MEAN CELL VOLUME 81.9 FL (80.0-100.0); MEAN CORPUSCULAR HEMOGLOBIN 27.2 PG (27.0-34.0); MEAN CORPUSCULAR HGB CONC 33.2 % (32.0-36.0); MONO % 5.1 % (0.0-8.0); NEUT % 50.1 % (16.0-70.0); PLATELET COUNT 360 TH/MM3 (150-450); RED CELL DISTRIBUTION WIDTH 14.1 % (11.6-17.2); WHITE BLOOD COUNT 5.8 TH/MM3 (4.0-11.0)
[2017-06-10 05:41] LABS: APTT (PATIENT) 27.3 SEC (24.3-30.1); PROTHROMBIN TIME - PATIENT 10.5 SEC (9.8-11.6)
[2017-06-10 05:59] LABS: ALT (GPT) 21 U/L (10-53); ANION GAP 7 MEQ/L (5-15); AST (GOT) 10 U/L (15-37); BLOOD UREA NITROGEN 13 MG/DL (7-18); CHLORIDE 105 MEQ/L (98-107); GLOMERULAR FILTRATION RATE 91 ML/MIN (>89); POTASSIUM 3.3 MEQ/L (3.5-5.1); SODIUM (NA) 139 MEQ/L (136-145)
[2017-06-10 06:09] LABS: ALKALINE PHOSPHATASE 79 U/L (45-117); CREATINE KINASE 126 U/L (26-192); TOTAL BILIRUBIN ADULT 0.2 MG/DL (0.2-1.0)
[2017-06-10 06:21] LABS: CKMB 0.7 NG/ML (0.5-3.6)
[2017-06-10] MEDS ORDERED: ONDANSETRON HCL 4 MG/2 ML VIAL IV PRN (07:00)
[2017-06-10] MEDS ORDERED: SODIUM CHLORIDE 0.9% FLUSH 10 ML FLUSH IV FLUSH PRN (07:00)
[2017-06-10] MEDS ORDERED: ACETAMINOPHEN 500 MG CPLT PO PRN (07:00)
[2017-06-10 07:42] VITALS: BP 126/67; PULSE 68; RESP 16; O2SAT 99
--- NOTE | 2017-06-10 08:53 | HHI.HP ---
HPI Primary Care Physician Meredith Alfonso MD Chief Complaint Chest pain History of Present Illness 42 old female with history of hypertension, hyperlipidemia, and prediabetic presents to emergency room for further evaluation of episode of stopping breathing and intermittent chest pain. Initially came the emergency room with 5 episodes of not breathing. Denies shortness of breath or chest discomfort. Endorses she was seen and evaluated 2 weeks ago in the emergency room for same symptom accompanied with chest pain. She was offered chest pain center admittance but she declined, now states she would like to have her heart evaluated. Never had a formal sleep study test. Episodes of "not breathing" generally last 4-5 seconds not accompanied with sleep or exertion. No known precipitating or relieving factors. Review of Systems General: No fatigue,weakness, fever, chills, recent illness, recent travel, or change in appetite. HEENT: No LEES, no nasal congestion or drainage, no dysphasia. History of migraines. CV: As stated above. No current chest pain or pressure. No palpitations, intermittent leg pain, or dizziness. RESP: No SOB, cough, wheeze, recent URI, or history of asthma. GI: No nausea, vomiting, bowel changes, diarrhea, constipation, pain, distention , melena, or blood in the stool. 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, denies chance of , not using control, is sexually active EXT: No lower leg edema, no paraesthesias MS: No discomfort or change in ROM NEURO: No difficulty with balance, LOC, motor/sensory deficits PSYCH: No anxiety, depression, or suicidal ideation SKIN: No rashes, no concerning lesions Past Family Social History Allergies: Coded Allergies: Peanut Allergy (Verified Allergy, Severe, 06/10/17) Potassium Chloride (Verified Allergy, Severe, 06/10/17) Tetanus Toxoid (Verified Allergy, Severe, RASH AT SITE, 06/10/17) Past Medical History Prediabetic, hypertension, migraines, hyperlipidemia, GERD Past Surgical History 1 Reported Medications Reported Raghu Aspirin (Aspirin) 325 Mg Tab 325 Mg PO DAILY PRN Active Ordered Medications Current Medications Medications (Trade) Dose Ordered Sig/Spencer Route Start Time Stop Time Status Last Admin (Tylenol) 500 mg Q4H PRN PO 06/10/17 07:00 (Zofran Inj) 4 mg Q6H PRN IV 06/10/17 07:00 (Protonix) 40 mg DAILY PO 06/10/17 09:00 Family History Noncontributory for early onset cardiovascular disease Social History Prediabetic. Known hypertension and hyperlipidemia. Lifelong nonsmoker. Denies any alcohol or illegal drug use. Endorses a sedentary lifestyle. Past cardiac testing 05/07/13 ETT stress testing unremarkable, no signs of ischemia. Physical Exam Vital Signs Vital Signs Date Time Temp Pulse Resp B/P Pulse Ox O2 Delivery O2 Flow Rate FiO2 06/10/17 07:42 68 16 126/67 99 Room Air 06/10/17 04:08 Room Air 06/10/17 03:49 98.4 80 16 170/101 99 Room Air Physical Exam GENERAL: Alert WN, WD, NAD, obese female HEAD: NC, AT EYES: Sclera clear, conjunctiva without injection, pupils equal and round ENT: Mucous membranes pink and moist, no nasal discharge or bleeding CV: RRR, without murmur, rub, gallop, no JVD, S1-S2 no S3-S4. RESP: Clear lungs throughout bilateral, no crackles, wheeze, rhonchi, symmetrical chest rise, nonlabored, able to speak in full sentences ABD: Soft, NT, ND, no masses, positive bowel tones, obese BACK: No CVAT 24, no dependent edema MS: Normal tone 4 extremities, nontender, no obvious deformities, full range of motion NEURO: CN II through CN XII grossly intact, motor strength 5/5, gait WNL PSYCH: A+O 3, pleasant affect, appropriate speech, appropriate mood and affect , insight and judgment SKIN: Normal turgor, normal texture, no lesions, no rashes Laboratory Laboratory Tests Test 06/10/17 05:05 White Blood Count 5.8 Red Blood Count 4.50 Hemoglobin 12.2 Hematocrit 36.9 Mean Corpuscular Volume 81.9 Mean Corpuscular Hemoglobin 27.2 Mean Corpuscular Hemoglobin 33.2 Concent Red Cell Distribution Width 14.1 Platelet Count 360 Mean Platelet Volume 8.6 Neutrophils (%) (Auto) 50.1 Lymphocytes (%) (Auto) 39.7 Monocytes (%) (Auto) 5.1 Eosinophils (%) (Auto) 4.3 Basophils (%) (Auto) 0.8 Neutrophils # (Auto) 2.9 Lymphocytes # (Auto) 2.3 Monocytes # (Auto) 0.3 Eosinophils # (Auto) 0.2 Basophils # (Auto) 0.0 CBC Comment DIFF FINAL Differential Comment Prothrombin Time 10.5 Prothromb Time International 1.0 Ratio Activated Partial 27.3 Thromboplast Time D-Dimer Quantitative (PE/DVT) LESS THAN 0.19 Sodium Level 139 Potassium Level 3.3 Chloride Level 105 Carbon Dioxide Level 27.0 Anion Gap 7 Blood Urea Nitrogen 13 Creatinine 0.83 Estimat Glomerular Filtration 91 Rate Random Glucose 139 Calcium Level 9.0 Total Bilirubin 0.2 Aspartate Amino Transf 10 (AST/SGOT) Alanine Aminotransferase 21 (ALT/SGPT) Alkaline Phosphatase 79 Total Creatine Kinase 126 Creatine Kinase MB 0.7 Troponin I LESS THAN 0.02 B-Type Natriuretic Peptide 7 Total Protein 7.4 Albumin 3.4 Lipase 135 Thyroid Stimulating Hormone 1.530 3rd Gen Result Diagram: 06/10/17 0505 06/10/17 0505 Imaging Last Impressions Chest X-Ray 06/10/17 0427 Signed Impressions: Service Date/Time: Saturday, June 10, 2017 04:30 - CONCLUSION: No acute cardiopulmonary abnormality is identified. Fredy Sierra MD Course EKGs Normal sinus rhythm, normal axis, no ST or T-segment changes Assessment and Plan Assessment and Plan #1 Atypical chest pain-admitted to chest pain center. Ruled out with 3 sets of EKGs, cardiac enzymes, and monitor throughout evening. Seen and evaluated by Dr. Madalyn Peace. Will proceed with exercise stress test. If unremarkable , will discharge with follow-up with primary care provider. Patient is agreeable to plan a care. #2 Hypertensioncontinue to monitor, encouraged her to continue BP medication as previously prescribed #3 Prediabeticdiscussed in length importance of weight loss, increasing her daily activity, following a low carbohydrate diet, avoiding sodas and drinks with sugar. #4 Sleep apneafollow-up with PCP for outpatient sleep study, again encouraged weight loss Elsy Ramsey Jun 10, 2017 08:53
[2017-06-10] MEDS ORDERED: SODIUM CHLORIDE 0.9% FLUSH 10 ML FLUSH IV FLUSH SCH (09:00)
[2017-06-10] MEDS: ASPIRIN 325 MG TAB PO SCH ×2 (09:00→10:05)
[2017-06-10] MEDS ORDERED: NITROGLYCERIN 0.4 MG SL 25 TABS/BTL SL PRN (09:00)
[2017-06-10] MEDS: PANTOPRAZOLE SOD 40 MG DELAYED RELEASE TAB PO SCH ×2 (09:00→10:05)
[2017-06-10 11:06] LABS: CREATINE KINASE 107 U/L (26-192)
[2017-06-10 11:14] LABS: CREATINE KINASE 103 U/L (26-192)
[2017-06-10 11:17] LABS: CKMB 0.6 NG/ML (0.5-3.6)
[2017-06-10 11:27] LABS: CKMB LESS THAN 0.5 NG/ML (0.5-3.6)
[2017-06-10 11:53] VITALS: BP 115/77; PULSE 82; RESP 20; O2SAT 100; O2SAT 99
--- NOTE | 2017-06-10 12:13 | TR ---
Date Performed: 06/10/2017 Time Performed: 11:30:12 DOCTOR: Madalyn Peace DRUG LIST: CLINICAL HISTORY: SHORTNESS OF BREATH REASON FOR TEST: REASON FOR ENDING: OBSERVATION: CONCLUSION: Neo protocol completed. Stopped sec to reaching target heart rate and leg fatigue. Maximum QP=429 Target HR Achieved=88.0 Maximum ES=675/82 Total Exercise Time=6:12. No reprod chest p ain. No ectopy. No st t segment changes to sugg ischemia. Good exercise tolerance. Normal bp response . Recovery quick and unremarkable. COMMENTS:
--- NOTE | 2017-06-10 12:27 | EKG ---
Date Performed: 06/10/2017 Time Performed: 11:56:10 PTAGE: 42 years EKG: Sinus rhythm NORMAL ECG Since PREVIOUS TRACING , no significant change noted PREVIOUS TRACIN06/10/2017 08.08 DOCTOR: Madalyn Peace Interpretating Date/Time 06/10/2017 12:25:13
[2017-06-10 13:52] LABS: BACTERIA, URINE RARE /hpf; BLOOD, URINE NEG (NEG); COMMENT (UR) CULT NOT INDICATED; CULTURE IF INDICATED CULT NOT INDICATED; GLUCOSE,URINE NEG (NEG); HYALINE CAST, URINE 2 /lpf (RARE); KETONE, URINE NEG (NEG); MUCUS URINE FEW /lpf (OCC); NITRITE,URINE NEG (NEG); PH, URINE 5.5 (5.0-8.5); SQUAMOUS EPITHELIAL CELL URINE 3 /hpf (0-5); URINE COLOR YELLOW (YELLW/STRAW)
[2017-06-10 13:57] VITALS: BP 110/69; PULSE 60; RESP 20; TEMP 98; O2SAT 99
[2017-06-10 14:08] LABS: BETA HCG QUANT LESS THAN 1 MIU/ML (0-5)
--- NOTE | 2017-06-10 14:45 | EKG ---
Date Performed: 06/10/2017 Time Performed: 05:54:49 PTAGE: 42 years EKG: Sinus rhythm WITH FIRST DEGREE AV BLOCK NONSPECIFIC ST & T-WAVE ABNORMALITY ABNORMAL ECG OR INTERVAL HAS INCREASE D FROM PRIOR TRACING PREVIOUS TRACING : 05/30/17 DOCTOR: Daniel Diggs Interpretating Date/Time 06/10/2017 14:43:14
--- NOTE | 2017-06-10 16:40 | RADRPT ---
EXAM DATE/TIME: 06/10/2017 14:37 [facility] COMPARISON: No previous studies available for comparison. INDICATIONS : Left sided chest pain. Angina DOSE: 35.0 mCi Tc99m Myoview at stress 11.0 mCi Tc99m Myoview at rest REST HEART RATE: 62 BPM TARGET HEART RATE: 150 BPM MAX HEART RATE: 152 BPM REST BLOOD PRESSURE: 136/86 mmHg MAX BLOOD PRESSURE: 150/74 mmHg EJECTION FRACTION: 63% MEDICAL HISTORY : Hypercholesterolemia. Hypertension. Diabetes mellitus type 2. SURGICAL HISTORY : section. ENCOUNTER: Initial ACUITY: 1 day PAIN SCALE: 2/10 LOCATION: Bilateral chest TECHNIQUE: The patient underwent upright treadmill exercise in the chest pain center. Continuous ECG tracing wa s monitored during stress. Gated SPECT imaging was performed after stress, and conventional SPECT im aging was performed at rest. The examination was performed on a SPECT/CT scanner, both attenuation-c orrected and non-corrected datasets were reviewed. FINDINGS: DISTRIBUTION: The maximum perfused segment at stress is in the septal wall. PERFUSION STUDY: Is mildly diminished relative perfusion to the cardiac apex without evidence of redistribution GATED STUDY: There is intact wall motion and thickening without hypokinetic or dyskinetic segments. CONCLUSION: Mild diminished apical perfusion without evidence of redistribution RISK CATEGORY: Low (<1% Annual Mortality Rate) Fredy Cordero MD on June 10, 2017 at 16:32 Board Certified Radiologist. This report was verified electronically.
--- NOTE | 2017-06-10 17:39 | HHI.DCPOC ---
Discharge Care Plan Diagnosis: (1) Sleep apnea (2) Atypical chest pain Goals to Promote Your Health * To prevent worsening of your condition and complications * To maintain your health at the optimal level Directions to Meet Your Goals Take your medications as prescribed Follow your dietary instruction Follow activity as directed Keep your appointments as scheduled Take your immunizations and boosters as scheduled If your symptoms worsen call your PCP, if no PCP go to Urgent Care Center or Emergency Room Smoking is Dangerous to Your Health. Avoid second hand smoke Call the 24-hour hour crisis hotline for domestic abuse at Elsy Ramsey Jun 10, 2017 17:39
--- NOTE | 2017-06-11 10:13 | EKG ---
Date Performed: 06/10/2017 Time Performed: 08:08:03 PTAGE: 42 years EKG: SINUS BRADYCARDIA ARM LEADS REVERSED, GIVING A FALSE AXIS PRECORDIAL LEADS ARE UNCHANGED FR OM THE PRIOR TRACING ABNORMAL ECG PREVIOUS TRACING : 06/10/2017 05.54 DOCTOR: Daniel Diggs Interpretating Date/Time 06/11/2017 10:11:12
--- NOTE | 2017-06-11 17:00 | TR ---
Date Performed: 06/10/2017 Time Performed: 15:24:42 DOCTOR: Toney Browne DRUG LIST: CLINICAL HISTORY: SHORTNESS OF BREATH REASON FOR TEST: REASON FOR ENDING: OBSERVATION: CONCLUSION: Neo protocol completed. Stopped sec to reaching target heart rate and leg fatigue. Maximum WH=038 Target HR Achieved=86.0% Maximum VF=118/86 Total Exercise Time=6:00. No reprod chest discomfort. T wave inversion inferiorly. No ectopy. Good exercise tolerance. Normal bp response. Remi very quick and unremarkable. Nuclear images pending. COMMENTS: Conclusion: Normal treadmill exercise. No evidence of ischemia.
== END 2017-06-10 19:28 | disposition home or self-care (01) ==
LOC: NEPC 03:48 → NEDA 06:34 → NEPGCP 13:36
PROVIDERS: ADMIT Internal Medicine Interventional Cardiology; ATTEND Internal Medicine Interventional Cardiology
DX: R07.89 Other chest pain (principal); I10 Essential (primary) hypertension; R73.03 Prediabetes; G47.30 Sleep apnea, unspecified; I44.0 Atrioventricular block, first degree; R00.1 Bradycardia, unspecified; Z79.899 Other long term (current) drug therapy
CPT/HCPCS: 71010; 78452; 80053; 81001; 82550; 82552; 83690; 83880; 84443; 84484; 84702; 84703; 85025; 85379; 85610; 85730; 93005; 93017; 99285; A9502; G0378

== ENCOUNTER 2017-06-25 10:20 | Emergency (ER) | payer OTHER ==
[~2017-06-25] VITALS: Ht 162.6 cm; Wt 75.0 kg
[~2017-06-25 10:20] MED LIST changes: -TRIA1SPR6 EACH NARE
[2017-06-25 10:22] VITALS: BP 129/82; PULSE 77; RESP 20; TEMP 98.4; O2SAT 99
--- NOTE | 2017-06-25 10:44 | PD ---
HPI Chief Complaint: Skin Problem Time Seen by Provider: 10:44 Travel History International Travel<30 days: No Contact w/Intl Traveler<30days: No Traveled to known affect area: No History of Present Illness HPI 42 YO F presents to the ED for evaluation of 2 day history of right posterior forearm swelling, warmth and pain. Also complains of a small blister, draining a small amount of purulent drainage on the left thumb. She denies known injury. She thinks she may have been bitten by bugs. She denies fever, chills , nausea, vomiting, limitations to range of motion of either extremity. She denies history of MRSA. States that she is allergic to the tetanus vaccine. PFSH Past Medical History Hx Anticoagulant Therapy: Yes Heart Rhythm Problems: No Cardiac Catheterization: No Cardiovascular Problems: No High Cholesterol: Yes Chemotherapy: No Chest Pain: Yes Congestive Heart Failure: No Cerebrovascular Accident: No Diabetes: Yes (PRE-DIABETIC) Patient Takes Glucophage: No Diminished Hearing: No GERD: Yes Headaches: Yes Heparin Induced Thrombocytopen: No Hypertension: Yes Respiratory: No Immunizations Current: Yes Migraines: Yes Myocardial Infarction: No Ulcer: Yes ?: Not LMP: may 30 : 1 Para: 1 Miscarriage: 0 : 0 Past Surgical History Abdominal Surgery: Yes Section: Yes (X1) Coronary Artery Bypass Graft: No Gynecologic Surgery: Yes (C SECTION) Oral Surgery: Yes (WISDOM TEETH) Social History Alcohol Use: No (DENIES) Tobacco Use: No Substance Use: No Allergies-Medications (Allergen,Severity, Reaction): Coded Allergies: Peanut Allergy (Verified Allergy, Severe, 06/10/17) Potassium Chloride (Verified Allergy, Severe, 06/10/17) Tetanus Toxoid (Verified Allergy, Severe, RASH AT SITE, 06/10/17) Reported Meds & Prescriptions Reported Meds & Active Scripts Active Ibuprofen 600 Mg Tab 600 Mg PO Q8HR PRN Keflex (Cephalexin) 500 Mg Cap 500 Mg PO Q6H 7 Days Bactrim DS (Sulfamethoxazole-Trimethoprim) 800-160 Mg Tab 1 Tab PO BID Hydrochlorothiazide 25 Mg Tab 25 Mg PO DAILY Review of Systems Except as stated in HPI: all other systems reviewed are Neg Physical Exam Narrative GENERAL: Well-nourished, well-developed nontoxic-appearing black female in no acute distress. Talking on the phone during history gathering. SKIN: Focused skin assessment warm/dry. There is a subcentimeter blister on the left thumb with a small amount of purulent drainage. HEAD: Normocephalic. EYES: No scleral icterus. No injection or drainage. NECK: Supple, trachea midline. No JVD or lymphadenopathy. CARDIOVASCULAR: Regular rate and rhythm without murmurs, gallops, or rubs. RESPIRATORY: Breath sounds equal bilaterally. No accessory muscle use. GASTROINTESTINAL: Abdomen soft, non-tender, nondistended. MUSCULOSKELETAL: No cyanosis, or edema. FOCUSED RIGHT UPPER EXTREMITY EXAM: There is an indurated area in the right posterior forearm which measures about 5 cm in diameter. No fluctuance, no pointing or drainage. There is a zone of inflammation around it but no lymphangitis. Patient retains full, active, painless range of motion of the extremity. Neurovascularly intact. FOCUSED LEFT UPPER EXTREMITY EXAM: Patient retains full, active, painless R I'm of the digits of the hand and the wrist. Neurovascularly intact. BACK: Nontender without obvious deformity. No CVA tenderness. Data Data Last Documented VS Vital Signs Date Time Temp Pulse Resp B/P Pulse Ox O2 Delivery O2 Flow Rate FiO2 06/25/17 10:22 98.4 77 20 129/82 99 Room Air Orders Wound Culture And Gram Stain (06/25/17 10:46) Ibuprofen (Motrin) (06/25/17 11:15) Sulfamet-Trimeth Ds 800-160 Mg (Bactrim (06/25/17 11:15) Cephalexin (Keflex) (06/25/17 11:15) MDM Medical Decision Making Medical Screen Exam Complete: Yes Emergency Medical Condition: Yes Differential Diagnosis Insect bite versus cellulitis versus abscess versus other Narrative Course 42 YO F presents to the ED for evaluation of 2 day history of right posterior forearm swelling, warmth and pain. Also complains of a small blister, draining a small amount of purulent drainage on the left thumb. She thinks she may have been bitten by bugs. She denies fever, chills, nausea, vomiting, limitations to range of motion of either extremity. She denies history of MRSA. States that she is allergic to the tetanus vaccine. Vitals reviewed. Physical exam reveals a nontoxic-appearing Afro-[place] female in no acute distress. There is a 5 cm area of induration on the right posterior forearm. No fluctuance, pointing, drainage. There is a small blister on the radial aspect of the right thumb that sleeping a small amount of purulent drainage. This was cultured. Per record review the patient had an episode of cellulitis 12/05/16 that grew staph aureus. This is cellulitis. Patient prescribed Bactrim, Keflex, ibuprofen, first dose is administered in the ED. She is instructed to take the medication as prescribed, even if symptoms resolve, return in 72 hours if symptoms worsen, otherwise follow up with the primary care provider. She indicated understanding of instructions and is agreeable to plan. She is stable and discharged home. Diagnosis Primary Impression: Cellulitis of right upper extremity Referrals: Primary Care Physician Patient Instructions: Cellulitis (ED), General Instructions Departure Forms: Tests/Procedures, Work Release Enter return to work date: Jun 26, 2017 Additional Instructions: Rest, hydrate. Take antibiotics as prescribed, even if her symptoms resolve. 600 mg ibuprofen up to 3 times a day as needed for pain. Warm compresses applied to the area 3-4 times a day, 15 minutes at a time may help to reduce symptoms. You may take [id number] Benadryl for itching. Follow-up with the primary care provider. Return to the ED if symptoms have not improved in 72 hours. Return to the ED for any urgent or emergent medical condition. Med/Other Pt SpecificInfo: Prescription(s) given Scripts Ibuprofen 600 Mg [id number] Mg PO Q8HR PRN (PAIN) #15 TAB Ref 0 Prov:Stacey Dougherty DO 06/25/17 Cephalexin (Keflex)500 Mg [id number] Mg PO Q6H 7 Days Ref 0 Prov:Stacey Dougherty DO 06/25/17 Sulfamethoxazole-Trimethoprim (Bactrim DS)800-160 Mg Tab1 Tab PO BID #14 TAB Ref 0 Prov:Stacey Dougherty DO 06/25/17 Disposition: 01 DISCHARGE HOME Condition: Stable Thi Casillas Jun 25, 2017 10:44
[2017-06-25] MEDS ORDERED: CEPH-460 PO (11:09)
[2017-06-25] MEDS ORDERED: BACT800T5 PO (11:09)
[2017-06-25] MEDS ORDERED: IBUP-232 PO (11:09)
[2017-06-25] MEDS ORDERED: IBUPROFEN 600 MG TAB PO ONE (11:15)
[2017-06-25] MEDS ORDERED: SULFAMETHOXAZOLE-TRIMETHOPRIM DS 800-160 MG TAB PO ONE (11:15)
[2017-06-25] MEDS ORDERED: CEPHALEXIN MONOHYDRATE 500 MG CAP PO ONE (11:15)
== END 2017-06-25 11:39 | disposition home or self-care (01) ==
LOC: NEPD 10:20
DX: L03.113 Cellulitis of right upper limb (principal); L03.011 Cellulitis of right finger; I10 Essential (primary) hypertension; R73.03 Prediabetes; E78.00 Pure hypercholesterolemia, unspecified; Z79.01 Long term (current) use of anticoagulants; Z87.19 Personal history of other diseases of the digestive system; Z86.69 Personal history of other diseases of the nervous system and sense organs
CPT/HCPCS: 86403; 87070; 99284

== ENCOUNTER 2017-07-18 16:12 | Emergency (ER) | payer OTHER ==
[~2017-07-18] VITALS: Ht 160 cm; Wt 103.0 kg
[~2017-07-18 16:12] MED LIST changes: +BACT800T5 PO; -BAYE325T PO; +CEPH-460 PO; +IBUP-232 PO
[2017-07-18 16:13] VITALS: BP 125/73; PULSE 86; RESP 18; TEMP 98.8; O2SAT 97
--- NOTE | 2017-07-18 21:00 | PD ---
HPI Chief Complaint: ENT Complaint Time Seen by Provider: 20:59 Travel History International Travel<30 days: No Contact w/Intl Traveler<30days: No Traveled to known affect area: No History of Present Illness HPI 42-year-old female came to the emergency room with history of sore throat. She says it has been going on for past 3 days. 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 Vital signs were stable. She did not take any medication prior to coming to the ER. No difficulty breathing. She has pain when she swallows. [facility] Past Medical History Narrative Medical List of her past medical, surgical, social and family history was reviewed from the nursing note. Hx Anticoagulant Therapy: Yes Heart Rhythm Problems: No Cardiac Catheterization: No Cardiovascular Problems: Yes (HTN) High Cholesterol: Yes Chemotherapy: No Chest Pain: Yes Congestive Heart Failure: No Cerebrovascular Accident: No Diabetes: Yes (PREDIABETIC) Patient Takes Glucophage: No Diminished Hearing: No GERD: Yes Headaches: Yes Heparin Induced Thrombocytopen: No Hypertension: Yes Musculoskeletal: Yes (CHEST WALL PAIN) Respiratory: No Immunizations Current: Yes Migraines: Yes Myocardial Infarction: No Ulcer: Yes ?: Not : 1 Para: 1 Miscarriage: 0 : 0 Past Surgical History Abdominal Surgery: Yes Section: Yes (X1) Coronary Artery Bypass Graft: No Gynecologic Surgery: Yes (C SECTION) Oral Surgery: Yes (WISDOM TEETH) Social History Alcohol Use: No (DENIES) Tobacco Use: No Substance Use: No Allergies-Medications (Allergen,Severity, Reaction): Coded Allergies: ipratropium (Unverified Allergy, Severe, 07/18/17) potassium (Unverified Allergy, Severe, 07/18/17) potassium chloride (Unverified Allergy, Severe, 07/18/17) tetanus toxoid, adsorbed (Unverified Allergy, Severe, RASH AT SITE, 07/18/17 ) Comments List of her allergies reviewed from the nursing note. Reported Meds & Prescriptions Reported Meds & Active Scripts Active Hydrochlorothiazide 25 Mg Tab 25 Mg PO DAILY Narrative Medication List of her home medications reviewed from the nursing note. Review of Systems Except as stated in HPI: all other systems reviewed are Neg Physical Exam Narrative GENERAL: Awake, alert, obese, moderate disc SKIN: Focused skin assessment warm/dry. HEAD: Atraumatic. Normocephalic. EYES: Pupils equal and round. No scleral icterus. No injection or drainage. ENT: No nasal bleeding or discharge. Mucous membranes pink and moist. Erythema with no exudate NECK: Trachea midline. No JVD. CARDIOVASCULAR: Regular rate and rhythm. No murmur appreciated. RESPIRATORY: No accessory muscle use. Clear to auscultation. Breath sounds equal bilaterally. GASTROINTESTINAL: Abdomen soft, non-tender, nondistended. Hepatic and splenic margins not palpable. MUSCULOSKELETAL: No obvious deformities. No clubbing. No cyanosis. No edema. NEUROLOGICAL: Awake and alert. No obvious cranial nerve deficits. Motor grossly within normal limits. Normal speech. PSYCHIATRIC: Appropriate mood and affect; insight and judgment normal. Data Data Last Documented VS Vital Signs Date Time Temp Pulse Resp B/P (MAP) Pulse Ox O2 Delivery O2 Flow Rate FiO2 07/18/17 22:40 07/18/17 16:13 98.8 86 18 97 Room Air Orders Orders Group A Rapid Strep Screen (07/18/17 21:03) Ibuprofen (Motrin) (07/18/17 21:15) Dexamethasone Inj (Decadron Inj) (07/18/17 21:15) Strep Culture (Group A) (07/18/17 21:08) MDM Medical Decision Making Medical Screen Exam Complete: Yes Emergency Medical Condition: Yes Medical Record Reviewed: Yes Differential Diagnosis Strep pharyngitis, viral pharyngitis, viral illness Narrative Course 10:06 PM patient was given Motrin for pain and Decadron for swelling. Rapid strep was negative. Patient will be discharged home. Procedures EKG Prior to Arrival: No Diagnosis Primary Impression: Viral pharyngitis Referrals: Primary Care Physician Additional Instructions: Please return to the ER if the condition worsens or any other new concerns. Drink lots of fluid. You can take [id number] Tylenol/Motrin/ibuprofen for the pain. She drinks tea with honey and lemon to soothe the throat. Follow -up with the primary care. Med/Other Pt SpecificInfo: No Change to Meds Disposition: 01 DISCHARGE HOME Condition: Stable Candie Zamora MD Jul 18, 2017 20:59
[2017-07-18] MEDS ORDERED: DEXAMETHASONE SOD PHOS 20 MG/5 ML VIAL IM ONE (21:15)
[2017-07-18] MEDS ORDERED: IBUPROFEN 600 MG TAB PO ONE (21:15)
== END 2017-07-18 22:45 | disposition home or self-care (01) ==
LOC: NEPD 16:12
DX: J02.9 Acute pharyngitis, unspecified (principal)
CPT/HCPCS: 87081; 87880; 96372; 99284; J1100

== ENCOUNTER 2017-07-26 11:30 | Emergency (ER) | payer OTHER ==
[~2017-07-26] VITALS: Ht 160 cm; Wt 102.0 kg
[~2017-07-26 11:30] MED LIST changes: -BACT800T5 PO; -CEPH-460 PO; -IBUP-232 PO
[2017-07-26 11:40] VITALS: BP 122/69; PULSE 74; RESP 16; TEMP 98.5; O2SAT 97
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
[2017-07-26] MEDS ORDERED: TETANUS/DIPHTHERIA TOXOID ADULT 0.5 ML VIAL IM ONE (12:30)
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
== END 2017-07-26 13:39 | disposition home or self-care (01) ==
LOC: PHED 11:30
DX: S16.1XXA Strain of muscle, fascia and tendon at neck level, initial encounter (principal); V89.2XXA Person injured in unspecified motor-vehicle accident, traffic, initial encounter
CPT/HCPCS: 72040; 90471; 90714

== ENCOUNTER 2017-07-29 20:55 | Emergency (ER) | payer OTHER ==
[~2017-07-29] VITALS: Ht 160 cm; Wt 102.6 kg
[2017-07-29 21:26] VITALS: BP 125/73; PULSE 82; RESP 20; O2SAT 99
[2017-07-29] MEDS ORDERED: CEPH-460 PO (22:00)
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
[2017-07-29] MEDS ORDERED: BACT800T5 PO (22:08)
== END 2017-07-29 22:11 | disposition home or self-care (01) ==
LOC: PHEFT 20:55
DX: S71.142A Puncture wound with foreign body, left thigh, initial encounter (principal); I10 Essential (primary) hypertension; E78.00 Pure hypercholesterolemia, unspecified; E11.9 Type 2 diabetes mellitus without complications; Z79.01 Long term (current) use of anticoagulants; V43.52XA Car driver injured in collision with other type car in traffic accident, initial encounter; Y92.410 Unspecified street and highway as the place of occurrence of the external cause; Y99.8 Other external cause status
CPT/HCPCS: 99283

== ENCOUNTER 2017-08-26 21:24 | Emergency (ER) | payer OTHER ==
[~2017-08-26] VITALS: Ht 160 cm; Wt 102.5 kg
[~2017-08-26 21:24] MED LIST changes: +BACT800T5 PO
[2017-08-26 21:51] VITALS: BP 140/78; PULSE 81; RESP 16; TEMP 98.4; O2SAT 100
--- NOTE | 2017-08-26 22:29 | PD ---
HPI Chief Complaint: Dizziness Time Seen by Provider: 22:22 Travel History International Travel<30 days: No Contact w/Intl Traveler<30days: No Traveled to known affect area: No History of Present Illness HPI The patient is a 42-year-old female that complains of lightheadedness, no vertigo, and nausea for the past 2 days. She denies any fever, diarrhea, vomiting or headache. She denies any dysuria, frequency or urgency. She does have midline epigastric discomfort. She had a similar episode of this in January of this year. She is a frequent visitor to the emergency department. She is on hydrochlorothiazide and states she is taking it correctly. She denies any chest pain, shortness of breath or cough. PFSH Past Medical History Hx Anticoagulant Therapy: Yes Heart Rhythm Problems: No Cardiac Catheterization: No Cardiovascular Problems: Yes (HTN) High Cholesterol: Yes Chemotherapy: No Chest Pain: Yes Congestive Heart Failure: No Cerebrovascular Accident: No Diabetes: Yes (PREDIABETIC) Patient Takes Glucophage: No Diminished Hearing: No GERD: Yes Headaches: Yes Heparin Induced Thrombocytopen: No Hypertension: Yes Musculoskeletal: Yes (CHEST WALL PAIN) Respiratory: No Immunizations Current: Yes Migraines: Yes Myocardial Infarction: No Ulcer: Yes ?: Not : 1 Para: 1 Miscarriage: 0 : 0 Past Surgical History Abdominal Surgery: Yes Section: Yes (X1) Coronary Artery Bypass Graft: No Gynecologic Surgery: Yes (C SECTION) Oral Surgery: Yes (WISDOM TEETH) Family History Family Myocardial Infarction: No Social History Alcohol Use: Yes (OCC) Tobacco Use: No Substance Use: No Allergies-Medications (Allergen,Severity, Reaction): Coded Allergies: ipratropium (Unverified Allergy, Severe, 07/29/17) potassium (Unverified Allergy, Severe, 07/29/17) potassium chloride (Unverified Allergy, Severe, 07/29/17) tetanus toxoid, adsorbed (Unverified Allergy, Severe, RASH AT SITE, ) Reported Meds & Prescriptions Reported Meds & Active Scripts Active Hydrochlorothiazide 25 Mg Tab 25 Mg PO DAILY Review of Systems Except as stated in HPI: all other systems reviewed are Neg Physical Exam Narrative GENERAL: The patient is alert, obese, oriented 3 and slight apparent distress with her midline epigastric discomfort. Her vital signs are normal. SKIN: Focused skin assessment warm/dry. HEAD: Atraumatic. Normocephalic. EYES: Pupils equal and round. No scleral icterus. No injection or drainage. ENT: No nasal bleeding or discharge. Mucous membranes pink and moist. NECK: Trachea midline. No JVD. CARDIOVASCULAR: Regular rate and rhythm. No murmur appreciated. RESPIRATORY: No accessory muscle use. Clear to auscultation. Breath sounds equal bilaterally. GASTROINTESTINAL: Abdomen soft, with slight tenderness to direct palpation in the midline epigastrium, nondistended. Hepatic and splenic margins not palpable. No guarding or rebound is present. MUSCULOSKELETAL: No obvious deformities. No clubbing. No cyanosis. No edema. NEUROLOGICAL: Awake and alert. No obvious cranial nerve deficits. Motor grossly within normal limits. Normal speech. PSYCHIATRIC: Appropriate mood and affect; insight and judgment normal. Data Data Last Documented VS Vital Signs Date Time Temp Pulse Resp B/P (MAP) Pulse Ox O2 Delivery O2 Flow Rate FiO2 08/26/17 22:11 98 Room Air 08/26/17 21:51 98.4 81 16 140/78 (98) Orders Orders Complete Blood Count With Diff (08/26/17 22:30) Comprehensive Metabolic Panel (08/26/17 22:30) Lipase (08/26/17 22:30) Ua Includes Microscopic (08/26/17 22:30) Sodium Chlor 0.9% 1000 Ml Inj (Ns 1000 M (08/26/17 22:32) Famotidine Inj (Pepcid Inj) (08/26/17 22:45) Al-Mag Hy-Si 40-40-4 Mg/Ml Liq (Mag-Al P (08/26/17 22:45) Lidocaine 2% Viscous (Xylocaine 2% Visco (08/26/17 22:45) Labs Laboratory Tests Test 08/26/17 23:00 08/26/17 23:10 Urine Color YELLOW Urine Turbidity SLIGHT Urine pH 6.0 Urine Specific [place] 1.023 Urine Protein NEG mg/dL Urine Glucose (UA) NEG mg/dL Urine Ketones NEG mg/dL Urine Occult Blood NEG Urine Nitrite NEG Urine Bilirubin NEG Urine Leukocyte Esterase NEG Urine WBC 3-5 /hpf Urine Squamous Epithelial Cells 6-8 /hpf Urine Amorphous Sediment FEW Urine Bacteria MANY /hpf Urine Hyaline Casts 3-5 /lpf Urine Mucus MOD /lpf Microscopic Urinalysis Comment White Blood Count 6.7 TH/MM3 Red Blood Count 4.23 MIL/MM3 Hemoglobin 11.1 GM/DL Hematocrit 34.3 % Mean Corpuscular Volume 81.1 FL Mean Corpuscular Hemoglobin 26.1 PG Mean Corpuscular Hemoglobin Concent 32.2 % Red Cell Distribution Width 13.8 % Platelet Count 334 TH/MM3 Mean Platelet Volume 8.4 FL Neutrophils (%) (Auto) 52.2 % Lymphocytes (%) (Auto) 37.3 % Monocytes (%) (Auto) 6.7 % Eosinophils (%) (Auto) 2.9 % Basophils (%) (Auto) 0.9 % Neutrophils # (Auto) 3.5 TH/MM3 Lymphocytes # (Auto) 2.5 TH/MM3 Monocytes # (Auto) 0.4 TH/MM3 Eosinophils # (Auto) 0.2 TH/MM3 Basophils # (Auto) 0.1 TH/MM3 CBC Comment DIFF FINAL Differential Comment Blood Urea Nitrogen 9 MG/DL Creatinine 0.85 MG/DL Random Glucose 120 MG/DL Total Protein 7.3 GM/DL Albumin 3.3 GM/DL Calcium Level 8.5 MG/DL Alkaline Phosphatase 72 U/L Aspartate Amino Transf (AST/SGOT) 11 U/L Alanine Aminotransferase (ALT/SGPT) 18 U/L Total Bilirubin 0.2 MG/DL Sodium Level 139 MEQ/L Potassium Level 3.4 MEQ/L Chloride Level 104 MEQ/L Carbon Dioxide Level 29.6 MEQ/L Anion Gap 5 MEQ/L Estimat Glomerular Filtration Rate 88 ML/MIN Lipase 116 U/L MDM Medical Decision Making Medical Screen Exam Complete: Yes Emergency Medical Condition: Yes Medical Record Reviewed: Yes Interpretation(s) The urine was a voided specimen and is normal except for many bacteria. The patient does not have any urinary tract symptoms. The CBC is normal except for hemoglobin of 11.1 and hematocrit of 34.3. The complete metabolic profile shows potassium of 3.4 with glucose of 120 and albumen 3.3 but is otherwise normal. The lipase is normal. Differential Diagnosis Hypo-/hyperglycemia, electrolyte disorder, renal insufficiency, urinary tract infection, dehydration, anxiety Narrative Course The patient is on hydrochlorothiazide and does have a slight hypokalemia. She states she does get some symptoms when her potassium goes down. Plan: The patient will be given a prescription for potassium supplement and is given a potassium pill here. She is to follow-up with her primary care physician. Diagnosis Primary Impression: Hypokalemia Lobo Lozoya MD Aug 26, 2017 22:29
[2017-08-26] MEDS ORDERED: SODIUM CHLOR 0.9% 1000 ML INJ 1,000 ML IV SCH (22:32)
[2017-08-26] MEDS ORDERED: FAMOTIDINE 20 MG/2 ML VIAL IV PUSH ONE (22:45)
[2017-08-26] MEDS ORDERED: ALUMINUM/MAGNESIUM/SIMETH 30 ML CUP PO ONE (22:45)
[2017-08-26] MEDS ORDERED: LIDOCAINE VISCOUS 2% SOLN 15 ML UDC PO ONE (22:45)
[2017-08-26 23:00] VITALS: BP 156/77; PULSE 89; RESP 16; O2SAT 100
[2017-08-26 23:15] LABS: AUTOMATED NEUTROPHIL # 3.5 TH/MM3 (1.8-7.7); BASOPHIL # 0.1 TH/MM3 (0-0.2); BASOPHIL % 0.9 % (0.0-2.0); EOSINOPHIL # 0.2 TH/MM3 (0-0.4); EOSINOPHIL % 2.9 % (0.0-4.0); HEMATOCRIT 34.3 % (35.0-46.0); HEMO FLAGS DIFF FINAL; LYMPH % 37.3 % (9.0-44.0); LYMPHOCYTE # 2.5 TH/MM3 (1.0-4.8); MEAN CELL VOLUME 81.1 FL (80.0-100.0); MEAN CORPUSCULAR HEMOGLOBIN 26.1 PG (27.0-34.0); MEAN CORPUSCULAR HGB CONC 32.2 % (32.0-36.0); MONO % 6.7 % (0.0-8.0); NEUT % 52.2 % (16.0-70.0); PLATELET COUNT 334 TH/MM3 (150-450); RED BLOOD COUNT 4.23 MIL/MM3 (4.00-5.30); RED CELL DISTRIBUTION WIDTH 13.8 % (11.6-17.2); WHITE BLOOD COUNT 6.7 TH/MM3 (4.0-11.0)
[2017-08-26 23:20] LABS: BLOOD, URINE NEG (NEG); GLUCOSE,URINE NEG (NEG); KETONE, URINE NEG (NEG); NITRITE,URINE NEG (NEG)
[2017-08-26 23:28] LABS: CHLORIDE 104 MEQ/L (98-107); POTASSIUM 3.4 MEQ/L (3.5-5.1); SODIUM (NA) 139 MEQ/L (136-145)
[2017-08-26 23:29] LABS: URINE COLOR YELLOW (YELLW/STRAW)
[2017-08-26 23:30] LABS: MUCUS URINE MOD /lpf (OCC)
[2017-08-26 23:31] LABS: BACTERIA, URINE MANY /hpf
[2017-08-26 23:32] LABS: ANION GAP 5 MEQ/L (5-15); BICARBONATE 29.6 MEQ/L (21.0-32.0); BLOOD UREA NITROGEN 9 MG/DL (7-18)
[2017-08-26 23:35] LABS: ALT (GPT) 18 U/L (10-53); AST (GOT) 11 U/L (15-37); GLOMERULAR FILTRATION RATE 88 ML/MIN (>89)
[2017-08-26 23:37] LABS: TOTAL BILIRUBIN ADULT 0.2 MG/DL (0.2-1.0)
[2017-08-26 23:38] LABS: ALKALINE PHOSPHATASE 72 U/L (45-117)
[2017-08-26] MEDS ORDERED: K-TA10TA PO (23:50)
[2017-08-27] MEDS ORDERED: POTASSIUM CHLORIDE 20 MEQ CONTROLLED RELEASE TAB PO ONE
[2017-08-27 00:57] VITALS: BP 154/74
== END 2017-08-27 01:02 | disposition home or self-care (01) ==
LOC: PHED 21:24
DX: E87.6 Hypokalemia (principal); R42 Dizziness and giddiness; E78.5 Hyperlipidemia, unspecified; I10 Essential (primary) hypertension; R73.03 Prediabetes; K21.9 Gastro-esophageal reflux disease without esophagitis
CPT/HCPCS: 80053; 81001; 83690; 85025; 96361; 96374; 99284; J7030

== ENCOUNTER 2017-11-09 23:14 | Emergency (ER) | payer OTHER ==
[~2017-11-09] VITALS: Ht 160 cm; Wt 105.0 kg
[~2017-11-09 23:14] MED LIST changes: -BACT800T5 PO; +K-TA10TA PO
[2017-11-09 23:20] VITALS: BP 134/76; PULSE 84; RESP 14; TEMP 98.9; O2SAT 99
--- NOTE | 2017-11-09 23:42 | PD ---
HPI Chief Complaint: Dizziness Time Seen by Provider: 23:37 Travel History International Travel<30 days: No Contact w/Intl Traveler<30days: No Traveled to known affect area: No History of Present Illness HPI 42 year-old female presents to the emergency department for complaint of 3 days of dizziness and cramping in her toes. Patient states she took left over potassium in the toes. Cramping. Patient denies headache visual disturbance neck pain chest pain shortness of breath abdominal pain flank pain she has experienced nausea but no vomiting no diarrhea no dysuria frequency urgency or hematuria. No upper or lower extremity numbness tingling or weakness reported by patient. No fever no chills. PFSH Past Medical History Narrative Medical Hypertension dyslipidemia prediabetes musculoskeletal pain headache dental extraction occasional alcohol use; nursing notes reviewed Hx Anticoagulant Therapy: Yes Heart Rhythm Problems: No Cardiac Catheterization: No Cardiovascular Problems: Yes (HTN) High Cholesterol: Yes Chemotherapy: No Chest Pain: Yes Congestive Heart Failure: No Cerebrovascular Accident: No Diabetes: Yes ( borderline diabetes GERD) Diminished Hearing: No GERD: Yes Headaches: Yes Heparin Induced Thrombocytopen: No Hypertension: Yes Musculoskeletal: Yes (CHEST WALL PAIN headaches chest wall pain peptic ulcer disease) Respiratory: No Immunizations Current: Yes Migraines: Yes Myocardial Infarction: No Ulcer: Yes ?: Not LMP: 11/05/17 : 1 Para: 1 Miscarriage: 0 : 0 Past Surgical History Abdominal Surgery: Yes Section: Yes (X1) Coronary Artery Bypass Graft: No Gynecologic Surgery: Yes (C SECTION) Oral Surgery: Yes (WISDOM TEETH) Social History Alcohol Use: Yes (OCC) Tobacco Use: No Substance Use: No Allergies-Medications (Allergen,Severity, Reaction): Coded Allergies: ipratropium (Unverified Allergy, Severe, 11/09/17) potassium chloride (Unverified Allergy, Severe, 11/09/17) tetanus toxoid, adsorbed (Unverified Allergy, Severe, RASH AT SITE, ) Reported Meds & Prescriptions Reported Meds & Active Scripts Active Hydrochlorothiazide 25 Mg Tab 25 Mg PO DAILY K-Tab (Potassium Chloride) 10 Meq Tab 10 Meq PO DAILY Review of Systems Except as stated in HPI: all other systems reviewed are Neg Physical Exam Narrative GENERAL: Well-developed well-nourished female in acute distress no respiratory distress SKIN: Warm and dry. HEAD: Atraumatic. Normocephalic. EYES: Pupils equal and round. No scleral icterus. No injection or drainage. ENT: No nasal bleeding or discharge. Mucous membranes pink and moist. NECK: Trachea midline. No JVD. CARDIOVASCULAR: Regular rate and rhythm. RESPIRATORY: No accessory muscle use. Clear to auscultation. Breath sounds equal bilaterally. GASTROINTESTINAL: Abdomen soft, non-tender, nondistended. Hepatic and splenic margins not palpable. MUSCULOSKELETAL: Extremities without clubbing, cyanosis, or edema. No obvious deformities. NEUROLOGICAL: Awake and alert. No obvious cranial nerve deficits. Motor grossly within normal limits. Five out of 5 muscle strength in the arms and legs. Normal speech. PSYCHIATRIC: Appropriate mood and affect; insight and judgment normal. Data Data Last Documented VS Vital Signs Date Time Temp Pulse Resp B/P (MAP) Pulse Ox O2 Delivery O2 Flow Rate FiO2 11/10/17 01:43 87 18 96 11/10/17 00:03 Room Air 11/09/17 23:20 98.9 Orders Orders Electrocardiogram (11/09/17 23:37) Basic Metabolic Panel (Bmp) (11/09/17 23:37) Complete Blood Count With Diff (11/09/17 23:37) Magnesium (Mg) (11/09/17 23:37) Urinalysis - C+S If Indicated (11/09/17 23:37) Ecg Monitoring (11/09/17 23:37) Iv Access Insert/Monitor (11/09/17 23:37) Oximetry (11/09/17 23:37) Ondansetron Inj (Zofran Inj) (11/09/17 23:45) Sodium Chloride 0.9% Flush (Ns Flush) (11/09/17 23:45) Ed Urine Pregnancytest Poc (11/09/17 23:43) Orthostatic Vital Signs (11/10/17 00:38) Meclizine (Antivert) (11/10/17 01:15) Ed Discharge Order (11/10/17 01:26) Labs Laboratory Tests Test 11/09/17 23:44 11/09/17 23:56 Urine Color YELLOW Urine Turbidity SLIGHT Urine pH 5.5 Urine Specific [place] 1.023 Urine Protein NEG mg/dL Urine Glucose (UA) NEG mg/dL Urine Ketones NEG mg/dL Urine Occult Blood SMALL Urine Nitrite NEG Urine Bilirubin NEG Urine Leukocyte Esterase NEG Urine RBC 0-3 /hpf Urine WBC 0-2 /hpf Urine Squamous Epithelial Cells 0-5 /hpf Urine Amorphous Sediment SMALL Urine Bacteria FEW /hpf Urine Mucus MOD /lpf Microscopic Urinalysis Comment CULT NOT INDICATED White Blood Count 6.5 TH/MM3 Red Blood Count 4.47 MIL/MM3 Hemoglobin 11.4 GM/DL Hematocrit 36.3 % Mean Corpuscular Volume 81.2 FL Mean Corpuscular Hemoglobin 25.6 PG Mean Corpuscular Hemoglobin Concent 31.6 % Red Cell Distribution Width 13.6 % Platelet Count 394 TH/MM3 Mean Platelet Volume 8.0 FL Neutrophils (%) (Auto) 50.6 % Lymphocytes (%) (Auto) 38.7 % Monocytes (%) (Auto) 6.0 % Eosinophils (%) (Auto) 4.2 % Basophils (%) (Auto) 0.5 % Neutrophils # (Auto) 3.3 TH/MM3 Lymphocytes # (Auto) 2.5 TH/MM3 Monocytes # (Auto) 0.4 TH/MM3 Eosinophils # (Auto) 0.3 TH/MM3 Basophils # (Auto) 0.0 TH/MM3 CBC Comment DIFF FINAL Differential Comment Blood Urea Nitrogen 15 MG/DL Creatinine 0.76 MG/DL Random Glucose 126 MG/DL Calcium Level 9.1 MG/DL Magnesium Level 2.1 MG/DL Sodium Level 138 MEQ/L Potassium Level 3.5 MEQ/L Chloride Level 100 MEQ/L Carbon Dioxide Level 32.0 MEQ/L Anion Gap 6 MEQ/L Estimat Glomerular Filtration Rate 101 ML/MIN [facility] Medical Decision Making Medical Screen Exam Complete: Yes Emergency Medical Condition: Yes Medical Record Reviewed: Yes Interpretation(s) POC: Negative Urinalysis: Culture not indicated CBC & BMP Diagram 11/09/17 23:56 Calcium Level 9.1, Magnesium Level 2.1 Vital Signs Date Time Temp Pulse Resp B/P (MAP) Pulse Ox O2 Delivery O2 Flow Rate FiO2 11/10/17 00:03 98 Room Air 11/09/17 23:35 16 11/09/17 23:20 98.9 84 14 134/76 (95) 99 EKG: Normal sinus rhythm rate [address] elevation or injury pattern or ectopy noted Differential Diagnosis Dizziness, vasovagal near syncope, arrhythmia, electrolyte disturbance, UTI, anemia, sepsis, dehydration, vertigo, labyrinthitis Narrative Course IV access obtained specimens questions for resulting EKG performed Lab values found to be grossly within normal range; EKG is sinus rhythm rate [address] elevation or injury pattern or ectopy noted At 12:35 AM patient informed of lab results; patient offered Antivert and declined medication Orthostatic measurements were done and found to be supine to standing most likely patient has mild dehydration is encouraged to increase fluid hydration and will be discharged to home. Diagnosis Primary Impression: Dizziness Referrals: Primary Care Physician call for appointment Patient Instructions: General Instructions Departure Forms: Tests/Procedures Additional Instructions: increase fluid hydration Follow-up with primary care provider No work times one day Return to the emergency department for any concerns or change in condition May use [id number] ibuprofen/acetaminophen per package instructions as needed for fever 100.4F or greater or for pain Med/Other Pt SpecificInfo: No Change to Meds Disposition: 01 DISCHARGE HOME Condition: Stable Loretta Roe MD Nov 09, 2017 23:42
[2017-11-09] MEDS ORDERED: SODIUM CHLORIDE 0.9% FLUSH 10 ML FLUSH IVF PRN (23:45)
[2017-11-09] MEDS ORDERED: ONDANSETRON HCL 4 MG/2 ML VIAL IVP ONE (23:45)
[2017-11-09 23:57] LABS: BILIRUBIN, URINE NEG (NEG); BLOOD, URINE SMALL (NEG); GLUCOSE,URINE NEG (NEG); KETONE, URINE NEG (NEG); NITRITE,URINE NEG (NEG); PH, URINE 5.5 (5.0-8.5); URINE LEUKOCYTE ESTERASE NEG (NEG)
[2017-11-10 00:03] VITALS: O2SAT 98
[2017-11-10 00:07] LABS: MUCUS URINE MOD /lpf (OCC); URINE COLOR YELLOW (YELLW/STRAW)
[2017-11-10 00:08] LABS: AMORPHOUS SEDIMENT, URINE SMALL; BACTERIA, URINE FEW /hpf; RBC, URINE 0-3 /hpf (0-3); SQUAMOUS EPITHELIAL CELL URINE 0-5 /hpf (0-5); WBC, URINE 0-2 /hpf (0-5)
[2017-11-10 00:18] LABS: AUTOMATED NEUTROPHIL # 3.3 TH/MM3 (1.8-7.7); BASOPHIL % 0.5 % (0.0-2.0); EOSINOPHIL # 0.3 TH/MM3 (0-0.4); EOSINOPHIL % 4.2 % (0.0-4.0); HEMATOCRIT 36.3 % (35.0-46.0); HEMOGLOBIN 11.4 GM/DL (11.6-15.3); LYMPH % 38.7 % (9.0-44.0); LYMPHOCYTE # 2.5 TH/MM3 (1.0-4.8); MEAN CELL VOLUME 81.2 FL (80.0-100.0); MEAN CORPUSCULAR HEMOGLOBIN 25.6 PG (27.0-34.0); MEAN CORPUSCULAR HGB CONC 31.6 % (32.0-36.0); MONOCYTE # 0.4 TH/MM3 (0-0.9); NEUT % 50.6 % (16.0-70.0); PLATELET COUNT 394 TH/MM3 (150-450); RED BLOOD COUNT 4.47 MIL/MM3 (4.00-5.30); RED CELL DISTRIBUTION WIDTH 13.6 % (11.6-17.2); WHITE BLOOD COUNT 6.5 TH/MM3 (4.0-11.0)
[2017-11-10 00:29] LABS: CALCIUM 9.1 MG/DL (8.5-10.1); MAGNESIUM 2.1 MG/DL (1.5-2.5)
[2017-11-10 00:33] LABS: CREATININE 0.76 MG/DL (0.50-1.00)
[2017-11-10] MEDS ORDERED: MECLIZINE HCL 25 MG TAB PO ONE (01:15)
[2017-11-10 01:20] VITALS: BP_SYST 103; BP_SYST 116; BP_SYST 119; BP_DIAS 68; BP_DIAS 69; BP_DIAS 75; RESP 16; RESP 18
--- NOTE | 2017-11-10 08:51 | EKG ---
Date Performed: 11/09/2017 Time Performed: 23:46:27 PTAGE: 42 years EKG: Sinus rhythm NONSPECIFIC T-WAVE ABNORMALITY BORDERLINE ECG PREVIOUS TRACING : 06/10/2017 11.56 No significant change from previous tracing noted. DOCTOR: Karri Charles Interpretating Date/Time 11/10/2017 08:49:17
== END 2017-11-10 01:46 | disposition home or self-care (01) ==
LOC: PHED 23:14
DX: R42 Dizziness and giddiness (principal); I10 Essential (primary) hypertension; E78.00 Pure hypercholesterolemia, unspecified; K21.9 Gastro-esophageal reflux disease without esophagitis; R94.31 Abnormal electrocardiogram [ECG] [EKG]; Z87.19 Personal history of other diseases of the digestive system
CPT/HCPCS: 80048; 81001; 83735; 84703; 85025; 93005

== ENCOUNTER 2017-11-30 01:39 | Emergency (ER) | payer OTHER ==
[~2017-11-30] VITALS: Ht 167.6 cm; Wt 108.0 kg
[2017-11-30 01:41] VITALS: BP 156/83; PULSE 86; RESP 16; TEMP 98.3; O2SAT 99
[2017-11-30] MEDS ORDERED: SODIUM CHLORID 0.9% 500 ML INJ 500 ML IV ONE (02:30)
[2017-11-30] MEDS ORDERED: ONDANSETRON HCL 4 MG/2 ML VIAL IV PUSH ONE (02:30)
--- NOTE | 2017-11-30 02:54 | RADRPT ---
EXAM DATE/TIME: 11/30/2017 02:40 [facility] COMPARISON: No previous studies available for comparison. INDICATIONS : Nausea and vomiting x 3 days MEDICAL HISTORY : Hypercholesterolemia. Hypertension Diabetes mellitus type II. GERD SURGICAL HISTORY : section. ENCOUNTER: Initial ACUITY: 3 days PAIN SCORE: 8/10 LOCATION: Bilateral Abdomen FINDINGS: Supine and upright views of the abdomen were performed. The abdominal bowel gas pattern is normal. There is a moderate amount of stool throughout the colon. No air fluid levels are seen. No abnormal masses, calcifications, or organomegaly is seen. The visualized lower lungs are clear. No evidence of free intraperitoneal gas. The osseous structures are unremarkable. CONCLUSION: Normal examination for a patient of this age. Ramos Garcia MD on November 30, 2017 at 2:52 Board Certified Radiologist. This report was verified electronically.
[2017-11-30 03:21] LABS: AUTOMATED NEUTROPHIL # 3.6 TH/MM3 (1.8-7.7); BASOPHIL # 0.1 TH/MM3 (0-0.2); BASOPHIL % 0.9 % (0.0-2.0); EOSINOPHIL # 0.3 TH/MM3 (0-0.4); EOSINOPHIL % 4.4 % (0.0-4.0); HEMATOCRIT 36.1 % (35.0-46.0); HEMOGLOBIN 12.1 GM/DL (11.6-15.3); LYMPH % 33.7 % (9.0-44.0); LYMPHOCYTE # 2.2 TH/MM3 (1.0-4.8); MEAN CELL VOLUME 80.8 FL (80.0-100.0); MEAN CORPUSCULAR HGB CONC 33.4 % (32.0-36.0); MEAN PLATELET VOLUME 8.6 FL (7.0-11.0); MONO % 6.9 % (0.0-8.0); MONOCYTE # 0.5 TH/MM3 (0-0.9); NEUT % 54.1 % (16.0-70.0); PLATELET COUNT 328 TH/MM3 (150-450); RED BLOOD COUNT 4.47 MIL/MM3 (4.00-5.30); RED CELL DISTRIBUTION WIDTH 14.6 % (11.6-17.2); WHITE BLOOD COUNT 6.6 TH/MM3 (4.0-11.0)
[2017-11-30 03:28] LABS: BACTERIA, URINE MANY /hpf; BILIRUBIN, URINE NEG (NEG); BLOOD, URINE NEG (NEG); GLUCOSE,URINE NEG (NEG); KETONE, URINE NEG (NEG); MUCUS URINE FEW /lpf (OCC); NITRITE,URINE NEG (NEG); SQUAMOUS EPITHELIAL CELL URINE 2 /hpf (0-5); URINE COLOR YELLOW (YELLW/STRAW); URINE LEUKOCYTE ESTERASE NEG (NEG)
[2017-11-30 03:50] LABS: ALKALINE PHOSPHATASE 82 U/L (45-117); TOTAL BILIRUBIN ADULT 0.2 MG/DL (0.2-1.0); TOTAL PROTEIN 7.8 GM/DL (6.4-8.2)
[2017-11-30 03:56] LABS: ALBUMIN 3.3 GM/DL (3.4-5.0); ALT (GPT) 19 U/L (10-53); AST (GOT) 23 U/L (15-37); BICARBONATE 26.5 MEQ/L (21.0-32.0); BLOOD UREA NITROGEN 14 MG/DL (7-18); CALCIUM 8.4 MG/DL (8.5-10.1); CHLORIDE 106 MEQ/L (98-107); GLOMERULAR FILTRATION RATE 83 ML/MIN (>89); GLUCOSE,RANDOM 163 MG/DL (74-106); LIPASE 150 U/L (73-393); MAGNESIUM 2.3 MG/DL (1.5-2.5); SODIUM (NA) 139 MEQ/L (136-145)
[2017-11-30] MEDS ORDERED: ZOFR4TAB3 SL (04:00)
[2017-11-30] MEDS ORDERED: MACR100C2 PO (04:00)
--- NOTE | 2017-11-30 04:05 | PD ---
HPI Chief Complaint: Numbness/Tingling Time Seen by Provider: 02:28 Travel History International Travel<30 days: No Contact w/Intl Traveler<30days: No Traveled to known affect area: No History of Present Illness HPI 42 year-old female presents to the emergency department complaining of multiple episodes of vomiting and then noticing that she felt a funny sensation in her tongue and some tingling in her hands which has resolved. Patient denies hematemesis coffee-ground emesis or melena or hematochezia. Patient has had some epigastric discomfort and denies any known history of gastritis or peptic ulcer disease. Patient denies chest pain or shortness of breath. No near- syncope or syncope or diaphoresis. No recent febrile illness. Patient denies any cough congestion sore throat earache sinus pressure drainage back pain flank pain dysuria frequency urgency. Patient has no known history of dietary indiscretion well water ingestion or foreign travel. No other coworkers or family members with similar symptoms. PFSH Past Medical History Narrative Medical Diet-controlled hyperglycemia hypertension dyslipidemia GERD ; no tobacco; nursing notes reviewed Hx Anticoagulant Therapy: Yes Heart Rhythm Problems: No Cardiac Catheterization: No Cardiovascular Problems: Yes (HTN) High Cholesterol: Yes Chemotherapy: No Chest Pain: Yes Congestive Heart Failure: No Cerebrovascular Accident: No Diabetes: Yes ( borderline diabetes GERD) Patient Takes Glucophage: No Diminished Hearing: No GERD: Yes Headaches: Yes Heparin Induced Thrombocytopen: No Hypertension: Yes Musculoskeletal: Yes (CHEST WALL PAIN headaches chest wall pain peptic ulcer disease) Respiratory: No Immunizations Current: Yes Migraines: Yes Myocardial Infarction: No Ulcer: Yes ?: Not LMP: 11/22/17 : 1 Para: 1 Miscarriage: 0 : 0 Past Surgical History Abdominal Surgery: Yes Section: Yes (X1) Coronary Artery Bypass Graft: No Gynecologic Surgery: Yes (C SECTION) Oral Surgery: Yes (WISDOM TEETH) Social History Alcohol Use: Yes (OCC) Tobacco Use: No Substance Use: No Allergies-Medications (Allergen,Severity, Reaction): Coded Allergies: ipratropium (Unverified Allergy, Severe, 11/30/17) potassium chloride (Unverified Allergy, Severe, 11/30/17) tetanus toxoid, adsorbed (Unverified Allergy, Severe, RASH AT SITE, ) peanut (Verified Allergy, Unknown, 11/30/17) Reported Meds & Prescriptions Reported Meds & Active Scripts Active Hydrochlorothiazide 25 Mg Tab 25 Mg PO DAILY K-Tab (Potassium Chloride) 10 Meq Tab 10 Meq PO DAILY Review of Systems Except as stated in HPI: all other systems reviewed are Neg Physical Exam Narrative GENERAL: Well-developed well-nourished female in no acute distress no respiratory distress SKIN: Warm and dry. HEAD: Normocephalic. EYES: No scleral icterus. No injection or drainage. NECK: Supple, trachea midline. No JVD or lymphadenopathy. CARDIOVASCULAR: Regular rate and rhythm without murmurs, gallops, or rubs. RESPIRATORY: Breath sounds equal bilaterally. No accessory muscle use. GASTROINTESTINAL: Abdomen soft, non-tender, nondistended. MUSCULOSKELETAL: No cyanosis, or edema. BACK: Nontender without obvious deformity. No CVA tenderness. Data Data Last Documented VS Vital Signs Date Time Temp Pulse Resp B/P (MAP) Pulse Ox O2 Delivery O2 Flow Rate FiO2 11/30/17 01:41 98.3 86 16 156/83 (107) 99 Room Air Orders Orders Complete Blood Count With Diff (11/30/17 02:28) Comprehensive Metabolic Panel (11/30/17 02:28) Urinalysis - C+S If Indicated (11/30/17 02:28) Lipase (11/30/17 02:28) Abdomen, Flat & Upright (11/30/17 ) Iv Access Insert/Monitor (11/30/17 02:28) Ecg Monitoring (11/30/17 02:28) Oximetry (11/30/17 02:28) Ondansetron Inj (Zofran Inj) (11/30/17 02:30) Sodium Chlorid 0.9% 500 Ml Inj (Ns 500 M (11/30/17 02:30) Magnesium (Mg) (11/30/17 02:28) Urine Culture (11/30/17 03:00) Labs Laboratory Tests Test 11/30/17 03:00 White Blood Count 6.6 TH/MM3 Red Blood Count 4.47 MIL/MM3 Hemoglobin 12.1 GM/DL Hematocrit 36.1 % Mean Corpuscular Volume 80.8 FL Mean Corpuscular Hemoglobin 27.0 PG Mean Corpuscular Hemoglobin Concent 33.4 % Red Cell Distribution Width 14.6 % Platelet Count 328 TH/MM3 Mean Platelet Volume 8.6 FL Neutrophils (%) (Auto) 54.1 % Lymphocytes (%) (Auto) 33.7 % Monocytes (%) (Auto) 6.9 % Eosinophils (%) (Auto) 4.4 % Basophils (%) (Auto) 0.9 % Neutrophils # (Auto) 3.6 TH/MM3 Lymphocytes # (Auto) 2.2 TH/MM3 Monocytes # (Auto) 0.5 TH/MM3 Eosinophils # (Auto) 0.3 TH/MM3 Basophils # (Auto) 0.1 TH/MM3 CBC Comment DIFF FINAL Differential Comment Urine Color YELLOW Urine Turbidity HAZY Urine pH 6.0 Urine Specific [place] 1.028 Urine Protein TRACE mg/dL Urine Glucose (UA) NEG mg/dL Urine Ketones NEG mg/dL Urine Occult Blood NEG Urine Nitrite NEG Urine Bilirubin NEG Urine Urobilinogen 2.0 MG/DL Urine Leukocyte Esterase NEG Urine WBC 4 /hpf Urine Squamous Epithelial Cells 2 /hpf Urine Bacteria MANY /hpf Urine Mucus FEW /lpf Microscopic Urinalysis Comment CULTURE INDICATED Blood Urea Nitrogen 14 MG/DL Creatinine 0.90 MG/DL Random Glucose 163 MG/DL Total Protein 7.8 GM/DL Albumin 3.3 GM/DL Calcium Level 8.4 MG/DL Magnesium Level 2.3 MG/DL Alkaline Phosphatase 82 U/L Aspartate Amino Transf (AST/SGOT) 23 U/L Alanine Aminotransferase (ALT/SGPT) 19 U/L Total Bilirubin 0.2 MG/DL Sodium Level 139 MEQ/L Potassium Level 4.1 MEQ/L Chloride Level 106 MEQ/L Carbon Dioxide Level 26.5 MEQ/L Anion Gap 7 MEQ/L Estimat Glomerular Filtration Rate 83 ML/MIN Lipase 150 U/L [facility] Medical Decision Making Medical Screen Exam Complete: Yes Emergency Medical Condition: Yes Medical Record Reviewed: Yes Interpretation(s) Urinalysis: Many bacteria CBC & BMP Diagram 11/30/17 03:00 Total Protein 7.8, Albumin 3.3 L, Calcium Level 8.4 L, Magnesium Level 2.3, Alkaline Phosphatase 82, Aspartate Amino Transf (AST/SGOT) 23, Alanine Aminotransferase (ALT/SGPT) 19, Total Bilirubin 0.2 Vital Signs Date Time Temp Pulse Resp B/P (MAP) Pulse Ox O2 Delivery O2 Flow Rate FiO2 11/30/17 01:41 98.3 86 16 156/83 (107) 99 Room Air Abdominal flat and upright x-ray no acute abnormalities per reading radiologist Differential Diagnosis Vomiting, gastroenteritis, electrolyte disturbance, dehydration, UTI, bowel obstruction, hyperventilation Narrative Course Specimens collected and sent for resulting; patient administered Zofran 4 mg IV Lab values in normal range except for urinalysis which shows many bacteria Patient given a dose of Macrobid in the emergency department is stable for outpatient management Diagnosis Primary Impression: UTI (urinary tract infection) Referrals: Primary Care Physician call for appointment Patient Instructions: General Instructions Additional Instructions: Increase fluid hydration Follow clear liquid diet for next 12-24 hours advance as tolerated to bland/ [place] diet and regular diet avoiding fried and fatty foods Complete course of antibiotic as prescribed Take acetaminophen/Tylenol as needed for fever 100.4F or greater Takes Zofran as prescribed as needed for nausea and/or vomiting Follow-up with her primary care provider Return to the emergency department for any concerns or change in condition Med/Other Pt SpecificInfo: Prescription(s) given Scripts Ondansetron Odt (Zofran Odt) 4 Mg Tab 4 MG SL Q6HR Y for Nausea/Vomiting, #10 TAB 0 Refills Prov: Loretta Roe MD 11/30/17 Nitrofurantoin Monohydrate Macrocrystals (Macrobid) 100 Mg Cap 100 MG PO BID for Infection for 10 Days, #20 CAP 0 Refills Prov: Loretta Roe MD 11/30/17 Disposition: 01 DISCHARGE HOME Condition: Stable Loretta Roe MD Nov 30, 2017 04:05
--- NOTE | 2017-12-01 12:39 | PD ---
Data Data Last Documented VS Vital Signs Date Time Temp Pulse Resp B/P (MAP) Pulse Ox O2 Delivery O2 Flow Rate FiO2 11/30/17 04:32 11/30/17 01:41 98.3 86 16 99 Room Air Orders Orders Complete Blood Count With Diff (11/30/17 02:28) Comprehensive Metabolic Panel (11/30/17 02:28) Urinalysis - C+S If Indicated (11/30/17 02:28) Lipase (11/30/17 02:28) Abdomen, Flat & Upright (11/30/17 ) Iv Access Insert/Monitor (11/30/17 02:28) Ecg Monitoring (11/30/17 02:28) Oximetry (11/30/17 02:28) Ondansetron Inj (Zofran Inj) (11/30/17 02:30) Sodium Chlorid 0.9% 500 Ml Inj (Ns 500 M (11/30/17 02:30) Magnesium (Mg) (11/30/17 02:28) Urine Culture (11/30/17 03:00) Ed Discharge Order (11/30/17 04:06) Labs Laboratory Tests Test 11/30/17 03:00 White Blood Count 6.6 TH/MM3 Red Blood Count 4.47 MIL/MM3 Hemoglobin 12.1 GM/DL Hematocrit 36.1 % Mean Corpuscular Volume 80.8 FL Mean Corpuscular Hemoglobin 27.0 PG Mean Corpuscular Hemoglobin Concent 33.4 % Red Cell Distribution Width 14.6 % Platelet Count 328 TH/MM3 Mean Platelet Volume 8.6 FL Neutrophils (%) (Auto) 54.1 % Lymphocytes (%) (Auto) 33.7 % Monocytes (%) (Auto) 6.9 % Eosinophils (%) (Auto) 4.4 % Basophils (%) (Auto) 0.9 % Neutrophils # (Auto) 3.6 TH/MM3 Lymphocytes # (Auto) 2.2 TH/MM3 Monocytes # (Auto) 0.5 TH/MM3 Eosinophils # (Auto) 0.3 TH/MM3 Basophils # (Auto) 0.1 TH/MM3 CBC Comment DIFF FINAL Differential Comment Urine Color YELLOW Urine Turbidity HAZY Urine pH 6.0 Urine Specific [place] 1.028 Urine Protein TRACE mg/dL Urine Glucose (UA) NEG mg/dL Urine Ketones NEG mg/dL Urine Occult Blood NEG Urine Nitrite NEG Urine Bilirubin NEG Urine Urobilinogen 2.0 MG/DL Urine Leukocyte Esterase NEG Urine WBC 4 /hpf Urine Squamous Epithelial Cells 2 /hpf Urine Bacteria MANY /hpf Urine Mucus FEW /lpf Microscopic Urinalysis Comment CULTURE INDICATED Blood Urea Nitrogen 14 MG/DL Creatinine 0.90 MG/DL Random Glucose 163 MG/DL Total Protein 7.8 GM/DL Albumin 3.3 GM/DL Calcium Level 8.4 MG/DL Magnesium Level 2.3 MG/DL Alkaline Phosphatase 82 U/L Aspartate Amino Transf (AST/SGOT) 23 U/L Alanine Aminotransferase (ALT/SGPT) 19 U/L Total Bilirubin 0.2 MG/DL Sodium Level 139 MEQ/L Potassium Level 4.1 MEQ/L Chloride Level 106 MEQ/L Carbon Dioxide Level 26.5 MEQ/L Anion Gap 7 MEQ/L Estimat Glomerular Filtration Rate 83 ML/MIN Lipase 150 U/L MDM Supervised Visit with RACHEL: No Narrative Course I received a call that the patient was unable to afford Macrobid for her urinary tract infection. I changed her to Bactrim 1 DS tablet twice a day for 3 days. Diagnosis Primary Impression: UTI (urinary tract infection) Referrals: Primary Care Physician call for appointment Patient Instructions: General Instructions, Urinary Tract Infection in Women ( ED) Departure Forms: Tests/Procedures Additional Instruction: Increase fluid hydration Follow clear liquid diet for next 12-24 hours advance as tolerated to bland/ [place] diet and regular diet avoiding fried and fatty foods Complete course of antibiotic as prescribed Take acetaminophen/Tylenol as needed for fever 100.4F or greater Takes Zofran as prescribed as needed for nausea and/or vomiting Follow-up with her primary care provider Return to the emergency department for any concerns or change in condition Scripts Ondansetron Odt (Zofran Odt) 4 Mg Tab 4 MG SL Q6HR Y for Nausea/Vomiting, #10 TAB 0 Refills Prov: Loretta Roe MD 11/30/17 Nitrofurantoin Monohydrate Macrocrystals (Macrobid) 100 Mg Cap 100 MG PO BID for Infection for 10 Days, #20 CAP 0 Refills Prov: Loretta Roe MD 11/30/17 Disposition: 01 DISCHARGE HOME Condition: Stable Rose Severino MD Dec 01, 2017 12:39
== END 2017-11-30 04:36 | disposition home or self-care (01) ==
LOC: NEPC 01:39
DX: N39.0 Urinary tract infection, site not specified (principal); R11.10 Vomiting, unspecified; I10 Essential (primary) hypertension; E78.00 Pure hypercholesterolemia, unspecified; E11.9 Type 2 diabetes mellitus without complications; K21.9 Gastro-esophageal reflux disease without esophagitis; Z87.19 Personal history of other diseases of the digestive system; Z79.899 Other long term (current) drug therapy
CPT/HCPCS: 74019; 80053; 81001; 83690; 83735; 85025; 87086; 99285; J7040

== ENCOUNTER 2017-12-12 19:14 | Emergency (ER) | payer OTHER ==
[~2017-12-12] VITALS: Ht 160 cm; Wt 105.0 kg
[~2017-12-12 19:14] MED LIST changes: +MACR100C2 PO; +ZOFR4TAB3 SL
[2017-12-12 19:38] VITALS: BP 149/82; PULSE 79; RESP 18; TEMP 98.2; O2SAT 100
--- NOTE | 2017-12-12 20:23 | PD ---
HPI Chief Complaint: Cold / Flu Symptoms Time Seen by Provider: 20:23 Travel History International Travel<30 days: No Contact w/Intl Traveler<30days: No Traveled to known affect area: No History of Present Illness HPI Patient came in complaining of palpitations and sneezing for past 2-3 days. Patient says that she took some owyz-spn-vebmcan [place] cold. Vital signs are stable. She does not appear to be in any distress. Patient has been in the emergency room multiple times in the past. Says she does not have a primary care. No history of fever or chills. No history of vomiting or diarrhea. No known sick contacts. PFSH Past Medical History Narrative Medical List of her past medical, surgical, social and family history is reviewed from the nursing note. Hx Anticoagulant Therapy: Yes Heart Rhythm Problems: No Cardiac Catheterization: No Cardiovascular Problems: Yes (HTN) High Cholesterol: Yes Chemotherapy: No Chest Pain: Yes Congestive Heart Failure: No Cerebrovascular Accident: No Diabetes: Yes Patient Takes Glucophage: No Diminished Hearing: No GERD: Yes Headaches: Yes Heparin Induced Thrombocytopen: No Hypertension: Yes Musculoskeletal: Yes (CHEST WALL PAIN headaches chest wall pain peptic ulcer disease) Respiratory: No Immunizations Current: Yes Migraines: Yes Myocardial Infarction: No Ulcer: Yes Tetanus Vaccination: < 5 Years Influenza Vaccination: No ?: Not LMP: 12/10/2017 : 1 Para: 1 Miscarriage: 0 : 0 Past Surgical History Abdominal Surgery: Yes Section: Yes (X's 1) Coronary Artery Bypass Graft: No Gynecologic Surgery: Yes (C SECTION) Oral Surgery: Yes ([place] teeth) Social History Alcohol Use: No Tobacco Use: No Substance Use: No Allergies-Medications (Allergen,Severity, Reaction): Coded Allergies: potassium chloride (Verified Allergy, Severe, 12/12/17) tetanus toxoid, adsorbed (Verified Allergy, Severe, RASH AT SITE, 12/12/17) peanut (Verified Allergy, Unknown, 12/12/17) Comments List of her allergies reviewed from the nursing note. Reported Meds & Prescriptions Reported Meds & Active Scripts Active Hydrochlorothiazide 25 Mg Tab 25 Mg PO DAILY Narrative Medication List of her home medications reviewed from the nursing note. Review of Systems Except as stated in HPI: all other systems reviewed are Neg Cardiovascular: Positive: Palpitations Physical Exam Narrative GENERAL: Awake, alert, no obvious distress, morbidly obese SKIN: Focused skin assessment warm/dry. HEAD: Atraumatic. Normocephalic. EYES: Pupils equal and round. No scleral icterus. No injection or drainage. ENT: No nasal bleeding or discharge. Mucous membranes pink and moist. NECK: Trachea midline. No JVD. CARDIOVASCULAR: Regular rate and rhythm. No murmur appreciated. RESPIRATORY: No accessory muscle use. Clear to auscultation. Breath sounds equal bilaterally. GASTROINTESTINAL: Abdomen soft, non-tender, nondistended. Hepatic and splenic margins not palpable. MUSCULOSKELETAL: No obvious deformities. No clubbing. No cyanosis. No edema. NEUROLOGICAL: Awake and alert. No obvious cranial nerve deficits. Motor grossly within normal limits. Normal speech. PSYCHIATRIC: Appropriate mood and affect; insight and judgment normal. Data Data Last Documented VS Vital Signs Date Time Temp Pulse Resp B/P (MAP) Pulse Ox O2 Delivery O2 Flow Rate FiO2 12/12/17 20:00 18 98 Room Air 12/12/17 19:38 98.2 79 149/82 (104) Orders Orders Electrocardiogram (12/12/17 ) Chest, Pa & Lat (12/12/17 ) Ed Discharge Order (12/12/17 21:43) [facility] Medical Decision Making Medical Screen Exam Complete: Yes Emergency Medical Condition: Yes Medical Record Reviewed: Yes Interpretation(s) Twelve-lead EKG was reviewed by me. Normal sinus rhythm, normal axis, nonspecific ST-T wave changes. Heart rate of 72 bpm. Differential Diagnosis Cardiac arrhythmia, pneumonia Narrative Course 9:45 PM used x-ray is within normal limit. I'm comfortable discharging her home. Procedures EKG Prior to Arrival: No Diagnosis Primary Impression: Palpitations Referrals: Primary Care Physician Additional Instructions: Do not take [id number] medication for sinus and cold. Their side effects can cause palpitations. Follow-up with primary care. Med/Other Pt SpecificInfo: No Change to Meds Disposition: 01 DISCHARGE HOME Condition: Stable Candie Zamora MD Dec 12, 2017 20:23
--- NOTE | 2017-12-12 21:22 | RADRPT ---
EXAM DATE/TIME: 12/12/2017 20:47 [facility] COMPARISON: No previous studies available for comparison. INDICATIONS : Shortness of breath. MEDICAL HISTORY : Hypercholesterolemia. Hypertension. Diabetes mellitus type 2. SURGICAL HISTORY : section. ENCOUNTER: Initial ACUITY: 4 - 6 days PAIN SCORE: 0/10 LOCATION: Bilateral chest FINDINGS: PA and lateral views of the chest demonstrate the lungs to be symmetrically aerated without evidence of mass, infiltrate or effusion. The cardiomediastinal contours are unremarkable. Osseous structure s are intact. CONCLUSION: 1. No active disease. No significant change from November 25. Jared King MD on December 12, 2017 at 21:17 Board Certified Radiologist. This report was verified electronically.
--- NOTE | 2017-12-13 13:26 | EKG ---
Date Performed: 12/12/2017 Time Performed: 20:33:22 PTAGE: 42 years EKG: Sinus rhythm WITH FIRST DEGREE AV BLOCK NONSPECIFIC T-WAVE ABNORMALITY Since the prior tracing, there has been no significant change ABNORMAL ECG PREVIOUS TRACING : 11/09/2017 23.46 DOCTOR: James Diaz Interpretating Date/Time 12/13/2017 13:24:31
== END 2017-12-12 21:58 | disposition home or self-care (01) ==
LOC: PHEFT 19:14
DX: R00.2 Palpitations (principal); I44.0 Atrioventricular block, first degree; I10 Essential (primary) hypertension; E78.00 Pure hypercholesterolemia, unspecified; E11.9 Type 2 diabetes mellitus without complications; K21.9 Gastro-esophageal reflux disease without esophagitis; Z88.8 Allergy status to other drugs, medicaments and biological substances
CPT/HCPCS: 71046; 93005

== ENCOUNTER 2017-12-30 00:27 | Emergency (ER) | payer OTHER ==
[~2017-12-30] VITALS: Ht 160 cm; Wt 106.3 kg
[~2017-12-30 00:27] MED LIST changes: -K-TA10TA PO; -MACR100C2 PO; -ZOFR4TAB3 SL
[2017-12-30 00:40] VITALS: BP 167/97; PULSE 87; RESP 18; TEMP 98.4; O2SAT 100
[2017-12-30 00:46] VITALS: BP 167/97; PULSE 87; RESP 18; TEMP 98.4; O2SAT 100
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
[2017-12-30] MEDS ORDERED: ONDANSETRON HCL 4 MG/2 ML VIAL IV PUSH ONE (02:15)
[2017-12-30] MEDS ORDERED: KETOROLAC TROMETHAMINE 30 MG/ML (IVP) VIAL IV PUSH ONE (02:15)
[2017-12-30] MEDS ORDERED: ORPHENADRINE INJ 60 MG/2 ML AMP IM ONE (02:15)
[2017-12-30] MEDS ORDERED: MORPHINE SULFATE 4 MG/ML INJ IV PUSH ONE (02:15)
[2017-12-30 02:25] LABS: AUTOMATED NEUTROPHIL # 4.3 TH/MM3 (1.8-7.7); BASOPHIL # 0.1 TH/MM3 (0-0.2); BASOPHIL % 1.4 % (0.0-2.0); EOSINOPHIL # 0.4 TH/MM3 (0-0.4); EOSINOPHIL % 4.8 % (0.0-4.0); HEMOGLOBIN 12.8 GM/DL (11.6-15.3); LYMPH % 32.6 % (9.0-44.0); LYMPHOCYTE # 2.6 TH/MM3 (1.0-4.8); MEAN CELL VOLUME 79.1 FL (80.0-100.0); MEAN CORPUSCULAR HEMOGLOBIN 26.6 PG (27.0-34.0); MEAN CORPUSCULAR HGB CONC 33.7 % (32.0-36.0); MEAN PLATELET VOLUME 8.3 FL (7.0-11.0); MONOCYTE # 0.4 TH/MM3 (0-0.9); NEUT % 56.2 % (16.0-70.0); PLATELET COUNT 410 TH/MM3 (150-450); RED CELL DISTRIBUTION WIDTH 14.3 % (11.6-17.2); WHITE BLOOD COUNT 7.8 TH/MM3 (4.0-11.0)
[2017-12-30 02:30] LABS: CHLORIDE 100 MEQ/L (98-107); SODIUM (NA) 135 MEQ/L (136-145)
[2017-12-30 02:33] LABS: CALCIUM 8.6 MG/DL (8.5-10.1)
[2017-12-30 02:34] LABS: ALBUMIN 3.5 GM/DL (3.4-5.0); BICARBONATE 27.6 MEQ/L (21.0-32.0); BLOOD UREA NITROGEN 10 MG/DL (7-18); GLUCOSE,RANDOM 125 MG/DL (74-106)
[2017-12-30 02:37] LABS: ALT (GPT) 20 U/L (10-53); AST (GOT) 22 U/L (15-37); CREATININE 0.83 MG/DL (0.50-1.00); GLOMERULAR FILTRATION RATE 91 ML/MIN (>89)
[2017-12-30 02:39] LABS: TOTAL BILIRUBIN ADULT 0.3 MG/DL (0.2-1.0); TOTAL PROTEIN 8.2 GM/DL (6.4-8.2)
[2017-12-30 02:40] LABS: ALKALINE PHOSPHATASE 89 U/L (45-117)
[2017-12-30 02:43] VITALS: BP 140/77; PULSE 77; RESP 16; O2SAT 99
--- NOTE | 2017-12-30 02:46 | RADRPT ---
EXAM DATE/TIME: 12/30/2017 02:19 [place] COMPARISON: SPINE CERVICAL LTD (AP&LAT), July 26, 2017, 12:26. INDICATIONS : Neck pain. RADIATION DOSE: 26.39 CTDIvol (mGy) ; Patient body habitus MEDICAL HISTORY : Hypertension. SURGICAL HISTORY : None. ENCOUNTER: Initial ACUITY: 1 day PAIN SCALE: 10/10 LOCATION: Bilateral neck TECHNIQUE: Volumetric scanning of the cervical spine was performed. Multiplanar reconstructions in the sagittal, coronal and oblique axial planes were performed. Using automated exposure control and adjustment o f the mA and/or kV according to patient size, radiation dose was kept as low as reasonably achievable to obtain optimal diagnostic quality images. DICOM format image data is available electronically f or review and comparison. FINDINGS: VERTEBRAE: Normal vertebral body height. Small bilateral cervical ribs are noted at C7. ALIGNMENT: No evidence of subluxation. C2-C3: The bony spinal canal is normal in size. No evidence of disc bulge or herniation. The neural forami na are bilaterally patent. C3-C4: The bony spinal canal is normal in size. No evidence of disc bulge or herniation. The neural forami na are bilaterally patent. C4-C5: The bony spinal canal is normal in size. No evidence of disc bulge or herniation. The neural forami na are bilaterally patent. C5-C6: The bony spinal canal is normal in size. No evidence of disc bulge or herniation. The neural forami na are bilaterally patent. C6-C7: The bony spinal canal is normal in size. No evidence of disc bulge or herniation. The neural forami na are bilaterally patent. C7-T1: The bony spinal canal is normal in size. No evidence of disc bulge or herniation. The neural forami na are bilaterally patent. CONCLUSION: 1. No evidence for acute fracture or listhesis. Nilson Al MD on December 30, 2017 at 2:43 Board Certified Radiologist. This report was verified electronically.
[2017-12-30] MEDS ORDERED: CYCL5TAB PO (03:03)
== END 2017-12-30 03:19 | disposition home or self-care (01) ==
LOC: PHED 00:27
DX: M43.6 Torticollis (principal); L52 Erythema nodosum; R70.0 Elevated erythrocyte sedimentation rate; I10 Essential (primary) hypertension; E78.00 Pure hypercholesterolemia, unspecified; K21.9 Gastro-esophageal reflux disease without esophagitis; R73.03 Prediabetes
CPT/HCPCS: 72125; 80053; 85025; 85652

== ENCOUNTER 2018-07-09 08:39 | Observation (INO) ==
[2018-07-09] MEDS ORDERED: Chlorhexidine Gluconate 2% 1 Pack (2 Cloths) TOPICAL SCH (09:30)
[2018-07-09] MEDS ORDERED: Metoprolol Tartrate 25 MG Tablet PO SCH (09:30)
[2018-07-09] MEDS ORDERED: Heparin - SQ 10,000 UNITS/ML Vial SQ SCH (09:30)
[2018-07-09] MEDS ORDERED: Sodium Chlor 0.9% Inj 500 ML IV.SIG SCH (10:00)
[2018-07-09] MEDS ORDERED: ceFAZolin 2 GM Premix Inj 2 GM/100 ML BAG IV.SIG SCH (10:00)
[2018-07-09] MEDS ORDERED: Sugammadex Inj 200 MG/2 ML Vial IV.PUSH ONE (11:03)
[2018-07-09] MEDS ORDERED: Famotidine PF Inj 20 MG/2 ML Vial ONE (11:22)
[2018-07-09] MEDS ORDERED: Lidocaine 1%/Epinephrine 1:100,000 Inj 20 ML Vial ONE (11:43)
[2018-07-09] MEDS ORDERED: Phenylephrine/NS 1000 MCG/10ML Syringe IV.PUSH ONE (13:55)
[2018-07-09] MEDS ORDERED: Glycopyrrolate Inj 1 MG/5 ML Syringe IV.PUSH ONE (13:55)
[2018-07-09] MEDS ORDERED: Ketorolac Inj 30 MG/ML (IVP) Vial IV.PUSH ONE (13:55)
[2018-07-09] MEDS ORDERED: Lidocaine PF 1% Inj 5 ML Syringe INFILTRATN ONE (13:55)
[2018-07-09] MEDS ORDERED: LORazepam 0.5 MG Tablet PO PRN (14:46)
[2018-07-09] MEDS ORDERED: Naloxone Inj 0.4 MG/ML Vial ONE (14:47)
[2018-07-09] MEDS ORDERED: MethylPREDNISolone Sod Succinate Inj 125 MG/2 ML Vial ONE (15:08)
[2018-07-09] MEDS: Dextrose 5%/NaCl 0.45% Inj 1,000 ML IV.CONT SCH (15:30)
[2018-07-09] MEDS ORDERED: fentaNYL Citrate Inj 100 MCG/2 ML Ampul ONE ×2 (15:37)
[2018-07-09] MEDS: Ketorolac Inj 30 MG/ML (IVP) Vial IV.PUSH SCH ×2 (16:16→21:09)
[2018-07-10] MEDS: Dextrose 5%/NaCl 0.45% Inj 1,000 ML IV.CONT SCH ×2 (01:00→11:43)
[2018-07-10] MEDS: Ketorolac Inj 30 MG/ML (IVP) Vial IV.PUSH SCH ×2 (03:00→11:13)
[2018-07-10 06:22] LABS: Baso % (Auto) 0.1 % (0.0-2.0); Hematocrit 36.8 % (35.0-46.0); Lymph # (Auto) 0.9 th/mm3 (1.0-4.8); Lymph % (Auto) 8.9 % (9.0-44.0); Mean Corpuscular HGB Conc 32.7 % (32.0-36.0); Mean Corpuscular Hemoglobin 27.2 pg (27.0-34.0); Mean Corpuscular Volume 83.1 fL (80.0-100.0); Mean Platelet Volume 8.6 fL (7.0-11.0); Mono # (Auto) 0.5 th/mm3 (0.0-0.9); Mono % (Auto) 4.8 % (0.0-8.0); Neut # (Auto) 8.9 th/mm3 (1.8-7.7); Neut % (Auto) 86.2 % (16.0-70.0); Platelet Count 396 th/mm3 (150-450); Red Blood Count 4.42 mil/mm3 (4.00-5.30); Red Cell Distribution Width 14.4 % (11.6-17.2); White Blood Count 10.3 th/mm3 (4.0-11.0)
[2018-07-10 06:42] LABS: Calcium 8.1 mg/dL (8.5-10.1); Potassium 3.7 meq/L (3.5-5.1)
[2018-07-10] MEDS ORDERED: Pantoprazole Sodium 20 MG DR Tablet PO ONE (07:30)
--- NOTE | 2018-07-10 07:30 | MP ---
cc: Vivian Forrester MD,Phyllis Dickey MD DATE OF OPERATION: 07/09/2018 PREOPERATIVE DIAGNOSES: 1. Complex pelvic mass. 2. Pelvic pain. POSTOPERATIVE DIAGNOSES: 1. Right ovarian mature cystic teratoma. 2. Pain with probable intermittent torsion. PROCEDURE: Robotic-assisted laparoscopic resection of pelvic mass (right bilateral salpingo-oophorectomy). SURGEON: Vivian Forrester MD. NITRATE OPERATOR: Amy lead recreation assistant. ANESTHESIA: General endotracheal anesthesia. ESTIMATED BLOOD LOSS: 50 mL. IV FLUIDS: 1800. URINE OUTPUT: 300. HISTORY: A 43-year-old female with a right-sided pelvic pain, found on exam and imaging to have a 12 cm complex pelvic mass. It had some radiographic features suggestive of a dermoid. She presented to the emergency room with acute onset of pain that resolved within 24-48 hours, raising the possibility of intermittent torsion. She was counseled regarding these findings and options in consultation in our office and she is seen again in the preoperative holding area accompanied by family where the findings are discussed and the plan of care are reviewed. She has decided that under no circumstances does she want a hysterectomy or does she want bilateral salpingo-oophorectomy, irrespective of the pathology. Even if there is ovarian cancer in this mass, she wants conservative surgery to consider the results but wishes to preserve fertility and avoid premature menopause. She understands the ramifications of this decision as it is discussed at length and questions were answered. FINDINGS: The uterus was symmetrically enlarged to approximately 14-16 cm. There seems to be a large fundal fibroid or fibroids and the gross impression of adenomyosis. On sounding of the uterus, the cavity is blocked at a depth of about 5.5 cm due to what feels like a leiomyoma compressing on the endometrial cavity. The left ovary has a simple appearing 3 cm follicular cyst. The right ovary has a 12 cm smooth walled mass that it is not adherent. It is mobile and certainly could be intermittently torsing. There is no appreciably enlarged pelvic or paraaortic lymph nodes. No peritoneal nodularity. The mass, once removed, had a very high volume of hair and oleo-keratin appearing fluid all grossly suggestive of a mature cystic teratoma. The mass was encapsulated in an EndoCatch bag and removed laparoscopically with no intraperitoneal spill. MODIFIER STATEMENT OF COMPLEXITY: The complexity of this case was increased due to her body habitus with a BMI of 44. A modifier should be applied accordingly. DETAILS OF PROCEDURE: She was taken to the operating room and placed in dorsal lithotomy position, after general endotracheal anesthesia was administered. A timeout was undertaken. She was identified by site recognition and hospital ID bracelet and the proposed procedure was reviewed and confirmed. She was carefully positioned in padded Miller stirrups. Her arms were padded and secured to the sides. She was further secured to the operating table with egg crate padding and tape in cross chest over the shoulder fashion. All sites noted to be properly aligned with no malalignment or pressure points. She was prepped in sterile fashion, placed in lithotomy position. The cervix was grasped. Uterine cavity was sounded with findings as described above. The cervix was dilated and a large VCare manipulator was inserted. Berry catheter placed in the bladder. She was returned to low lithotomy position. Change of sterile gloves was undertaken. We completed draping in anticipation of laparoscopy and confirmed that an orogastric tube was in the stomach on suction. With manual elevation of the abdominal wall and direct laparoscopic visualization, a 5 mm cannula was introduced in an atraumatic fashion. Carbon dioxide gas was insufflated. Then under guidance, 8 mm cannulas were placed in the right upper quadrant and left lateral quadrant and a 12 mm cannula placed in the midline above the umbilicus. She was placed in Trendelenburg position. Peritoneal washings were obtained for cytology. The anatomy was surveyed with findings as described above. The small bowel was folded back on its mesenteric root and 3 Ray-Kimberlee sponges were placed around the root of the small bowel mesentery. The robotic system was brought into the operative field and attached in the usual fashion. Monopolar scissors, fenestrated bipolar forceps, and ProGrasp manipulators were placed in arms #1, 2, and 3 respectively and I took my place at the surgeon's console. The retroperitoneal dissection was carried out lateral and parallel to the right gonadal vessels. The dissection was carried above the level of the pelvic brim. The right ureter was identified and the intervening peritoneum was opened as the infundibulopelvic ligament was isolated and dissected free to the level of the pelvic brim. Distally, the peritoneal attachments were dissected free, isolating the right uteroovarian ligament. The right uteroovarian ligament was cauterized thoroughly and then the infundibulopelvic ligament was cauterized thoroughly. Having secured the blood supply, the infundibulopelvic ligament was transected and the right uteroovarian ligaments were transected, thereby removing the right tube and ovary with an intact capsule placed in the right pericolic gutter for later retrieval. A simple follicular cyst in the left ovary was drained and the anatomy was again surveyed with findings as described above. No evidence of malignancy; and in keeping with findings and her wishes, no further steps were taken. The pelvis was irrigated. All sites were noted to be hemostatic. The robotic instruments were removed. The robotic system was disengaged from the operative field. I reentered the bedside under sterile condition. Each of the 3 Ray-Kimberlee sponges were removed individually. Each were inspected and noted to be removed in their entirety as they were withdrawn through the 12 mm cannula. Next, the fascial incision was extended approximately 1 cm and the skin incision was extended slightly in the supraumbilical site. A 15 mm cannula was introduced and a 15 cm EndoCatch bag was used captured the mass, which was brought up to the abdominal wall for removal. Contained within the bag, the cyst wall was ruptured. The yellow appearing a thick material was drained to reduce the size of the mass and then the Rupali clamps were used with sharp dissection to reduce the size of the solid component to deliver the specimen. A large volume of hair and oleo-keratin material were identified as the mass was removed contained within the bag through the abdominal wall with no intraperitoneal spill. The abdomen and pelvis were again irrigated. No intraperitoneal spill of contents were noted. All sites hemostatic. There were no remaining foreign objects in the peritoneal cavity and preliminary counts were correct. The central fascial defect was closed with interrupted #0 Vicryl sutures using a needle fascial closure apparatus. They were tied securely which rendered the fascia completely airtight and hemostatic. The remainder of the cannulas were withdrawn. Carbon dioxide gas was removed from the peritoneal cavity. 3-0 Vicryl subcutaneous, 3-0 Vicryl subcuticular, and Steri-Strips were used to close these incisions. She was returned to dorsal lithotomy position. The VCare manipulator was removed from the uterus. The tenaculum site on the cervix was rendered hemostatic with silver nitrate. There was no bleeding, no remaining foreign objects in the vagina, and final counts were correct. She was returned to dorsal supine position and was pending reversal of anesthesia when I left the operating room to precede her to the postanesthesia care unit. MD ELGIN Reece/aris , 06:42 AM , 06:57 AM
[2018-07-10] MEDS ORDERED: hydroCHLOROthiazide 25 MG Tablet PO SCH (09:00)
--- NOTE | 2018-07-11 08:38 | MD ---
cc: Vivian Forrester MD,Meredith De La Rosa MD DATE OF DISCHARGE: PROCEDURE: On 07/09/2018, robotic assisted laparoscopic resection of pelvic mass (right salpingo-oophorectomy). DIAGNOSIS: Ovarian mature cystic teratoma. HOSPITAL COURSE: She did well in the early postop period; was hemodynamically stable, tolerated oral intake. Berry catheter removed pending voiding; adequate pain control. Ins and outs recorded 2700/100; however, there is much higher volume of urine in the collection bag noted. LABORATORY DATA: The labs are pending at the time of this dictation PHYSICAL EXAMINATION: VITAL SIGNS: She is afebrile, pulse 75, respirations 16-19, blood pressure 128-164/69-87, O2 saturations greater than or equal to 97% while awake. LUNGS: Clear. CARDIOVASCULAR: Regular rate and rhythm. Incision is clean and dry. ASSESSMENT: Postoperative day #1. 1. Findings at the time of surgery with steps were taken and the preliminary pathology reviewed, activities and restrictions discussed. Questions were asked and answered. She expressed good understanding. PLAN: I anticipate she will meet the criteria for discharge to home today. She is to contact our office to schedule a followup in approximately 2 weeks. She is to resume prior medications. She will have a prescription for Percocet and she is to contact our office should she have any questions or problems between now and the time of scheduled followup. MD ELGIN Reece/melissa/lottie , 06:31 AM , 06:37 AM
== END 2018-07-10 13:56 | disposition home or self-care (01) ==
LOC: HOR 08:39 → HCIS 08:39
PROVIDERS: ADMIT Obstetrics & Gynecology Gynecologic Oncology; ATTEND Obstetrics & Gynecology Gynecologic Oncology